=== PATIENT | female | born 1980 | race Two or more races ===

== ENCOUNTER 2023-05-27 13:08 | Inpatient (IN) | payer MEDICAID, OTHER ==
[~2023-05-27] VITALS: Ht 175.3 cm; Wt 56.0 kg
[2023-05-27] MEDS ORDERED: HYDROmorphone HCL 2 MG/ML VL/or syr IM ONE (14:30)
[2023-05-27] MEDS ORDERED: ONDANSETRON HCL 4 MG/2 ML VIAL IM ONE (14:30)
[2023-05-27 15:12] LABS: Basophils # (auto) 0.1 10 ^3/uL (0-0.2); Eosinophils # (auto) 0.2 10 ^3/uL (0-0.8); Eosinophils % (auto) 1.7 % (0.0-7.0); Monocytes # (auto) 0.9 10 ^3/uL (0-1.3)
[2023-05-27 15:14] LABS: Basophils % (auto) 1.1 % (0.0-2.0); Hematocrit 31.2 % (36.0-46.0); Hemoglobin 9.9 g/dL (12.2-16.2); Lymphocytes # (auto) 1.5 10 ^3/uL (0.4-5.4); Lymphocytes % (auto) 12.8 % (10.0-50.0); Mean Corpuscular Hgb Conc. 31.6 g/dL (32.0-36.0); Mean Corpuscular Volume 72.9 fL (80.0-100.0); Monocytes % (auto) 7.4 % (0.0-12.0); Neutrophils # (auto) 9.1 10 ^3/uL (1.6-8.6); Red Blood Cells 4.28 10^6/uL (4.0-5.20); Red Cell Distribution Width 18.5 % (11.8-14.3); White Blood Cell 11.8 10^3/uL (4.4-10.8)
[2023-05-27 15:29] LABS: Alanine Aminotransferase 10 U/L (7-40); Albumin 3.8 g/dL (3.2-4.8); Alkaline Phosphatase 202 U/L (46-116); Anion Gap 8 (5-15); Aspartate Aminotransferase 16 U/L (13-40); Bilirubin, Total 0.2 mg/dL (0.2-1.0); Blood Urea Nitrogen 8 mg/dL (9-23); Calcium 9.2 mg/dL (8.7-10.4); Carbon Dioxide 28 mmol/L (20-30); Chloride 100 mmol/L (98-107); Glucose 138 mg/dL (74-106); Lipase 32 U/L (12-53); Magnesium 1.9 mg/dL (1.6-2.6); Potassium 4.6 mmol/L (3.5-5.1); Sodium 136 mmol/L (136-145)
[2023-05-27 15:30] LABS: Total Protein 7.1 g/dL (5.7-8.2)
[2023-05-27 15:33] LABS: INR 1.07 (0.9-1.15); Partial Thromboplastin Time 32.7 SEC (24.5-34.5); Prothrombin Time 11.2 sec (9.3-11.8)
[2023-05-27 15:55] LABS: Anisocytosis Slight; Hypochromia Slight; Platelet Estimate Adequate
[2023-05-27 18:06] LABS: Urine Bacteria NONE SEEN /hpf (None Seen); Urine Blood 1+ /uL (Negative); Urine Clarity CLOUDY (Clear); Urine Color Yellow (Yellow); Urine Mucus FEW (None Seen); Urine Protein, UAD 1+ (Negative); Urine Urobilinogen Normal (Negative); Urine WBC 12 /hpf (0 - 5); Urine pH 6.5 (5.0-8.0)
[2023-05-27] MEDS: FOLIC ACID 1 MG, MULTIPLE VITAMIN 10 ML, MAGNESIUM SULF SDV 50% 8 MEQ, THIAMINE INJ 100... INJ SCH ×5 (21:01)
[2023-05-28] MEDS ORDERED: cefTRIAXone 1GM/50ML D5W 50 ML IV ONE (00:45)
[2023-05-28] MEDS ORDERED: MORPHINE SULFATE INJ 2 MG/ml SYRG IV PRN ×2 (02:00→02:45)
[2023-05-28] MEDS ORDERED: ACETAMINOPHEN 325 MG TAB PO PRN (02:00)
[2023-05-28] MEDS ORDERED: ONDANSETRON HCL 4 MG/2 ML VIAL IV PRN (02:00)
[2023-05-28] MEDS ORDERED: NITROGLYCERIN 0.4 MG SL TAB SL PRN (02:45)
[2023-05-28] MEDS: HYDROcodone-ACET 5/325MG TAB PO PRN ×2 (02:47→15:11)
[2023-05-28] MEDS: SODIUM CHLORIDE 0.9% 1,000 ML IV SCH ×2 (02:49→18:40)
[2023-05-28 07:24] LABS: Albumin 3.9 g/dL (3.2-4.8); Alkaline Phosphatase 174 U/L (46-116); Anion Gap 10 (5-15); Aspartate Aminotransferase 15 U/L (13-40); BUN/Creatinine Ratio 18.8 (10.0-20.0); Bilirubin, Total 0.2 mg/dL (0.2-1.0); Blood Urea Nitrogen 9 mg/dL (9-23); Calcium 9.5 mg/dL (8.7-10.4); Carbon Dioxide 25 mmol/L (20-30); Chloride 103 mmol/L (98-107); Glucose 105 mg/dL (74-106); Potassium 3.9 mmol/L (3.5-5.1); Sodium 138 mmol/L (136-145); Total Protein 7.4 g/dL (5.7-8.2)
[2023-05-28 07:25] LABS: Alanine Aminotransferase < 9 U/L (7-40)
[2023-05-28 07:40] LABS: Basophils # (auto) 0.1 10 ^3/uL (0-0.2); Eosinophils # (auto) 0.2 10 ^3/uL (0-0.8); Hemoglobin 9.4 g/dL (12.2-16.2); Monocytes # (auto) 0.8 10 ^3/uL (0-1.3); Nucleated Red Blood Cells % 0.1 %; Red Cell Distribution Width 18.4 % (11.8-14.3)
[2023-05-28 07:42] LABS: Hematocrit 30.8 % (36.0-46.0); Lymphocytes # (auto) 1.6 10 ^3/uL (0.4-5.4); Lymphocytes % (auto) 13.3 % (10.0-50.0); Mean Corpuscular Hemoglobin 22.6 pg (28.0-32.0); Mean Corpuscular Hgb Conc. 30.4 g/dL (32.0-36.0); Mean Corpuscular Volume 74.2 fL (80.0-100.0); Monocytes % (auto) 6.9 % (0.0-12.0); Neutrophils # (auto) 9.3 10 ^3/uL (1.6-8.6); Neutrophils % (auto) 76.8 % (37.0-80.0); Red Blood Cells 4.15 10^6/uL (4.0-5.20); White Blood Cell 12.1 10^3/uL (4.4-10.8)
[2023-05-28] MEDS ORDERED: cefTRIAXone 1GM/50ML D5W 50 ML IV SCH ×2 (09:00)
[2023-05-28 09:34] VITALS: PULSE 89; RESP 16; O2SAT 94
[2023-05-28] MEDS: GABAPENTIN 300 MG CAP PO SCH ×2 (10:54→21:07)
[2023-05-28] MEDS: ENOXAPARIN SOD 40 MG/0.4 ML SYRINGE SC SCH (10:55)
[2023-05-28 14:52] VITALS: PULSE 85; RESP 19; O2SAT 97
[2023-05-28] MEDS: FOLIC ACID 1 MG, MULTIPLE VITAMIN 10 ML, MAGNESIUM SULF SDV 50% 8 MEQ, THIAMINE INJ 100... INJ SCH ×5 (14:54)
[2023-05-28 16:00] VITALS: BP 109/68; PULSE 103; RESP 20; TEMP 97.6; O2SAT 94
[2023-05-28] MEDS: CYCLOBENZAPRINE HCL 10 MG TAB PO PRN (16:14)
[2023-05-28] MEDS ORDERED: CETI5SOL8 PO (17:08)
[2023-05-28] MEDS ORDERED: CYCL-839 PO (17:08)
[2023-05-28] MEDS ORDERED: GABA250S7 PO (17:08)
[2023-05-28] MEDS ORDERED: HYDR1TAB97 PO (17:08)
[2023-05-28] MEDS ORDERED: DULO1CAP5 PO (17:08)
[2023-05-28 20:00] VITALS: PULSE 130
[2023-05-28 22:00] VITALS: BP 92/63; PULSE 112; RESP 18; TEMP 97.9; O2SAT 96
[2023-05-28] MEDS: cefTRIAXone 1GM/50ML D5W 50 ML IV SCH (23:53)
[2023-05-29] VITALS (7 sets, daily range): BP systolic 92–101; BP diastolic 57–72; PULSE 100–130; RESP 15–21; TEMP 97.8–99; O2SAT 95–99
[2023-05-29] MEDS: DOCUSATE SOD 100 MG CAP PO PRN (06:08)
[2023-05-29] MEDS: HYDROcodone-ACET 5/325MG TAB PO PRN ×2 (06:08→19:52)
[2023-05-29 06:47] LABS: Basophils # (auto) 0.1 10 ^3/uL (0-0.2); Eosinophils # (auto) 0.3 10 ^3/uL (0-0.8); Hemoglobin 7.8 g/dL (12.2-16.2); Monocytes # (auto) 0.8 10 ^3/uL (0-1.3)
[2023-05-29 06:49] LABS: Basophils % (auto) 1.2 % (0.0-2.0); Eosinophils % (auto) 3.2 % (0.0-7.0); Hematocrit 24.4 % (36.0-46.0); Lymphocytes # (auto) 1.7 10 ^3/uL (0.4-5.4); Lymphocytes % (auto) 18.5 % (10.0-50.0); Mean Corpuscular Hemoglobin 23.4 pg (28.0-32.0); Mean Corpuscular Volume 73.1 fL (80.0-100.0); Monocytes % (auto) 8.5 % (0.0-12.0); Neutrophils # (auto) 6.3 10 ^3/uL (1.6-8.6); Neutrophils % (auto) 68.6 % (37.0-80.0); Red Blood Cells 3.34 10^6/uL (4.0-5.20); Red Cell Distribution Width 18.4 % (11.8-14.3); White Blood Cell 9.1 10^3/uL (4.4-10.8)
[2023-05-29 07:08] LABS: Albumin 2.9 g/dL (3.2-4.8); Alkaline Phosphatase 128 U/L (46-116); Anion Gap 6 (5-15); Aspartate Aminotransferase 8 U/L (13-40); BUN/Creatinine Ratio 16.7 (10.0-20.0); Blood Urea Nitrogen 8 mg/dL (9-23); Calcium 8.5 mg/dL (8.7-10.4); Carbon Dioxide 26 mmol/L (20-30); Chloride 106 mmol/L (98-107); Glucose 81 mg/dL (74-106); Potassium 3.8 mmol/L (3.5-5.1); Sodium 138 mmol/L (136-145)
[2023-05-29 07:09] LABS: Total Protein 5.6 g/dL (5.7-8.2)
[2023-05-29 07:14] LABS: Alanine Aminotransferase < 9 U/L (7-40)
[2023-05-29 07:23] LABS: Bilirubin, Total 0.2 mg/dL (0.2-1.0)
[2023-05-29] MEDS: GABAPENTIN 300 MG CAP PO SCH ×2 (09:34→21:01)
[2023-05-29] MEDS: CYCLOBENZAPRINE HCL 10 MG TAB PO PRN ×2 (09:34→21:03)
[2023-05-29] MEDS: ENOXAPARIN SOD 40 MG/0.4 ML SYRINGE SC SCH (09:34)
[2023-05-29] MEDS: SODIUM CHLORIDE 0.9% 1,000 ML IV SCH (11:20)
[2023-05-29] MEDS: FOLIC ACID 1 MG, MULTIPLE VITAMIN 10 ML, MAGNESIUM SULF SDV 50% 8 MEQ, THIAMINE INJ 100... INJ SCH ×5 (12:23)
[2023-05-30] VITALS (7 sets, daily range): BP systolic 91–108; BP diastolic 59–75; PULSE 84–120; RESP 18–20; TEMP 97.5–98.5; O2SAT 93–98
[2023-05-30] MEDS: cefTRIAXone 1GM/50ML D5W 50 ML IV SCH (00:55)
[2023-05-30] MEDS: SODIUM CHLORIDE 0.9% 1,000 ML IV SCH (04:00)
[2023-05-30] MEDS: HYDROcodone-ACET 5/325MG TAB PO PRN ×2 (06:08→19:22)
[2023-05-30] MEDS: ENOXAPARIN SOD 40 MG/0.4 ML SYRINGE SC SCH (09:11)
[2023-05-30] MEDS: CYCLOBENZAPRINE HCL 10 MG TAB PO PRN ×2 (09:11→21:34)
[2023-05-30] MEDS: GABAPENTIN 300 MG CAP PO SCH ×2 (09:11→21:34)
[2023-05-30] MEDS: DOCUSATE SOD 100 MG CAP PO PRN (09:15)
[2023-05-30] MEDS: FOLIC ACID 1 MG, MULTIPLE VITAMIN 10 ML, MAGNESIUM SULF SDV 50% 8 MEQ, THIAMINE INJ 100... INJ SCH ×5 (13:06)
[2023-05-31] VITALS (7 sets, daily range): BP systolic 96–132; BP diastolic 59–72; PULSE 63–137; RESP 16–20; TEMP 98.1–98.7; O2SAT 94–100
[2023-05-31] MEDS: cefTRIAXone 1GM/50ML D5W 50 ML IV SCH (00:03)
[2023-05-31] MEDS: SODIUM CHLORIDE 0.9% 1,000 ML IV SCH ×2 (00:06→13:20)
[2023-05-31 07:24] LABS: Chloride 104 mmol/L (98-107); Potassium 4.2 mmol/L (3.5-5.1); Sodium 134 mmol/L (136-145)
[2023-05-31 07:25] LABS: Anion Gap 7 (5-15); Carbon Dioxide 23 mmol/L (20-30)
[2023-05-31 07:26] LABS: Basophils # (auto) 0.1 10 ^3/uL (0-0.2); Calcium 8.8 mg/dL (8.5-10.1); Eosinophils # (auto) 0.4 10 ^3/uL (0-0.8); Hemoglobin 8.7 g/dL (12.2-16.2); Mean Corpuscular Volume 73.8 fL (80.0-100.0); Red Cell Distribution Width 18.6 % (11.8-14.3)
[2023-05-31 07:27] LABS: Basophils % (auto) 0.9 % (0.0-2.0); Eosinophils % (auto) 3.7 % (0.0-7.0); Hematocrit 27.8 % (36.0-46.0); Lymphocytes # (auto) 1.6 10 ^3/uL (0.4-5.4); Lymphocytes % (auto) 16.6 % (10.0-50.0); Mean Corpuscular Hemoglobin 23.2 pg (28.0-32.0); Mean Corpuscular Hgb Conc. 31.4 g/dL (32.0-36.0); Monocytes # (auto) 0.9 10 ^3/uL (0-1.3); Monocytes % (auto) 9.4 % (0.0-12.0); Neutrophils # (auto) 6.7 10 ^3/uL (1.6-8.6); Neutrophils % (auto) 69.4 % (37.0-80.0); Nucleated Red Blood Cells % 0.2 %; Red Blood Cells 3.77 10^6/uL (4.0-5.20); White Blood Cell 9.7 10^3/uL (4.4-10.8)
[2023-05-31 07:30] LABS: Glucose 98 mg/dL (74-106)
[2023-05-31 07:33] LABS: BUN/Creatinine Ratio 11.4 (10.0-20.0); Blood Urea Nitrogen < 5 mg/dL (9-23)
[2023-05-31 07:41] LABS: CRP High Sensitivity 9.38 mg/dL (<1.0)
[2023-05-31 08:07] LABS: Erythrocyte Sedimentation Rate 93 mm/hr (0-20)
[2023-05-31] MEDS: ENOXAPARIN SOD 40 MG/0.4 ML SYRINGE SC SCH (09:15)
[2023-05-31] MEDS: GABAPENTIN 300 MG CAP PO SCH ×2 (09:15→21:37)
[2023-05-31] MEDS: DOCUSATE SOD 100 MG CAP PO PRN (12:13)
[2023-05-31] MEDS: FOLIC ACID 1 MG, MULTIPLE VITAMIN 10 ML, MAGNESIUM SULF SDV 50% 8 MEQ, THIAMINE INJ 100... INJ SCH ×5 (12:24)
[2023-05-31] MEDS ORDERED: ALPRAZolam 0.25 MG TAB PO PRN (13:15)
[2023-05-31] MEDS: FERROUS SULFATE 325mg EC TAB PO SCH (14:46)
[2023-05-31] MEDS: HYDROcodone-ACET 5/325MG TAB PO PRN ×2 (14:51→18:20)
[2023-05-31] MEDS ORDERED: SODIUM CHLORIDE 0.9% 500 ML IV ONE (15:00)
[2023-05-31 15:33] LABS: % Iron Saturation 5.8 % (15-50)
[2023-05-31] MEDS: dilTIAZem HCL 60 MG TAB PO SCH (21:38)
[2023-06-01] VITALS (7 sets, daily range): BP systolic 94–110; BP diastolic 51–72; PULSE 94–124; RESP 17–19; TEMP 97.2–98.3; O2SAT 95–100
[2023-06-01] MEDS: cefTRIAXone 1GM/50ML D5W 50 ML IV SCH ×2 (01:57→23:44)
[2023-06-01] MEDS: dilTIAZem HCL 60 MG TAB PO SCH ×3 (05:35→21:29)
[2023-06-01] MEDS: HYDROcodone-ACET 5/325MG TAB PO PRN ×4 (05:36→23:43)
[2023-06-01] MEDS: SODIUM CHLORIDE 0.9% 1,000 ML IV SCH ×2 (08:18→23:44)
[2023-06-01] MEDS: GABAPENTIN 300 MG CAP PO SCH ×2 (09:14→21:29)
[2023-06-01] MEDS: FERROUS SULFATE 325mg EC TAB PO SCH (09:15)
[2023-06-01] MEDS: FOLIC ACID 1 MG, MULTIPLE VITAMIN 10 ML, MAGNESIUM SULF SDV 50% 8 MEQ, THIAMINE INJ 100... INJ SCH ×5 (12:28)
[2023-06-01] MEDS: NYSTATIN (MOUTH-THROAT) 500,000 UNITS/5 ML SUSP MT SCH ×2 (18:20→21:29)
[2023-06-02 05:00] VITALS: BP 98/64; PULSE 81; RESP 18; TEMP 98.5; O2SAT 96
[2023-06-02 05:40] LABS: Monocytes # (auto) 0.7 10 ^3/uL (0-1.3); Neutrophils # (auto) 5.6 10 ^3/uL (1.6-8.6)
[2023-06-02 05:42] LABS: Basophils # (auto) 0 10 ^3/uL (0-0.2); Basophils % (auto) 0.6 % (0.0-2.0); Eosinophils # (auto) 0.5 10 ^3/uL (0-0.8); Eosinophils % (auto) 5.6 % (0.0-7.0); Hematocrit 26.3 % (36.0-46.0); Hemoglobin 8.4 g/dL (12.2-16.2); Lymphocytes # (auto) 1.4 10 ^3/uL (0.4-5.4); Lymphocytes % (auto) 16.5 % (10.0-50.0); Mean Corpuscular Hemoglobin 23.3 pg (28.0-32.0); Mean Corpuscular Hgb Conc. 31.9 g/dL (32.0-36.0); Neutrophils % (auto) 68.3 % (37.0-80.0); Nucleated Red Blood Cells % 0.1 %; Red Cell Distribution Width 18.3 % (11.8-14.3); White Blood Cell 8.2 10^3/uL (4.4-10.8)
[2023-06-02 05:48] LABS: Chloride 106 mmol/L (98-107); Potassium 3.9 mmol/L (3.5-5.1); Sodium 136 mmol/L (136-145)
[2023-06-02 05:49] LABS: Anion Gap 6 (5-15); Calcium 8.6 mg/dL (8.5-10.1); Carbon Dioxide 24 mmol/L (20-30)
[2023-06-02 05:54] LABS: Blood Urea Nitrogen 8 mg/dL (9-23); Glucose 103 mg/dL (74-106)
[2023-06-02] MEDS: dilTIAZem HCL 60 MG TAB PO SCH (06:26)
[2023-06-02] MEDS: HYDROcodone-ACET 5/325MG TAB PO PRN ×3 (06:26→20:28)
[2023-06-02] MEDS: NYSTATIN (MOUTH-THROAT) 500,000 UNITS/5 ML SUSP MT SCH ×4 (06:26→21:24)
[2023-06-02 08:00] VITALS: BP 100/55; PULSE 116; PULSE 120; RESP 19; TEMP 98; O2SAT 96
[2023-06-02 08:15] VITALS: BP 100/55; PULSE 116; RESP 16; TEMP 98
[2023-06-02] MEDS: FERROUS SULFATE 325mg EC TAB PO SCH (09:30)
[2023-06-02] MEDS: GABAPENTIN 300 MG CAP PO SCH ×2 (09:30→21:24)
[2023-06-02] MEDS: dilTIAZem HCL 180MG ER CAP PO SCH (09:31)
[2023-06-02] MEDS: DOCUSATE SOD 100 MG CAP PO PRN ×2 (15:04→21:24)
[2023-06-02] MEDS: SODIUM CHLORIDE 0.9% 1,000 ML IV SCH (15:20)
[2023-06-02] MEDS: FOLIC ACID 1 MG, MULTIPLE VITAMIN 10 ML, MAGNESIUM SULF SDV 50% 8 MEQ, THIAMINE INJ 100... INJ SCH ×5 (15:54)
[2023-06-02 16:40] VITALS: BP 106/68; PULSE 108; RESP 20; TEMP 97.8; O2SAT 96
[2023-06-02 20:00] VITALS: PULSE 105; PULSE 106; RESP 18; O2SAT 96
[2023-06-02 21:55] VITALS: BP 101/71; PULSE 104; RESP 16; TEMP 98.2; O2SAT 99
[2023-06-03] MEDS: cefTRIAXone 1GM/50ML D5W 50 ML IV SCH ×2 (00:09→23:59)
[2023-06-03 05:00] VITALS: BP 99/70; PULSE 99; RESP 20; TEMP 98.2; O2SAT 95
[2023-06-03] MEDS: NYSTATIN (MOUTH-THROAT) 500,000 UNITS/5 ML SUSP MT SCH ×4 (05:31→21:32)
[2023-06-03 08:00] VITALS: BP 102/56; PULSE 105; PULSE 116; PULSE 51; RESP 16; RESP 20; TEMP 98.4; O2SAT 92
[2023-06-03] MEDS: HYDROcodone-ACET 5/325MG TAB PO PRN ×3 (09:22→22:07)
[2023-06-03] MEDS: SODIUM CHLORIDE 0.9% 1,000 ML IV SCH (09:23)
[2023-06-03] MEDS: FERROUS SULFATE 325mg EC TAB PO SCH (10:15)
[2023-06-03] MEDS: GABAPENTIN 300 MG CAP PO SCH ×2 (10:15→21:33)
[2023-06-03] MEDS: dilTIAZem HCL 180MG ER CAP PO SCH (10:16)
[2023-06-03 12:54] VITALS: BP 115/59; PULSE 100; RESP 20; TEMP 97.7; O2SAT 97
[2023-06-03] MEDS: FOLIC ACID 1 MG, MULTIPLE VITAMIN 10 ML, MAGNESIUM SULF SDV 50% 8 MEQ, THIAMINE INJ 100... INJ SCH ×5 (14:16)
[2023-06-03 17:00] VITALS: BP 97/67; PULSE 100; RESP 20; TEMP 97.5; O2SAT 95
[2023-06-03] MEDS: THROAT LOZENGES(CEPASTAT) MT PRN (17:30)
[2023-06-03 19:50] LABS: Magnesium 2.2 mg/dL (1.6-2.6)
[2023-06-03 20:00] VITALS: PULSE 102; RESP 18; O2SAT 95
[2023-06-03] MEDS: METOPROLOL TARTRATE 25 MG TAB PO SCH (21:42)
[2023-06-03 22:00] VITALS: BP 104/71; PULSE 98; RESP 16; TEMP 97.9; O2SAT 100
[2023-06-03] MEDS ORDERED: METOPROLOL TARTRATE 25 MG TAB PO SCH ×2 (22:00)
[2023-06-04] VITALS (8 sets, daily range): BP systolic 91–138; BP diastolic 57–81; PULSE 64–119; RESP 17–22; TEMP 98–98.6; O2SAT 94–100
[2023-06-04] MEDS: NYSTATIN (MOUTH-THROAT) 500,000 UNITS/5 ML SUSP MT SCH ×4 (05:07→21:46)
[2023-06-04] MEDS: HYDROcodone-ACET 5/325MG TAB PO PRN ×4 (08:00→23:45)
[2023-06-04] MEDS: GABAPENTIN 300 MG CAP PO SCH ×2 (09:54→21:46)
[2023-06-04] MEDS: FERROUS SULFATE 325mg EC TAB PO SCH (09:54)
[2023-06-04] MEDS: METOPROLOL TARTRATE 25 MG TAB PO SCH ×2 (09:55→21:48)
[2023-06-04 11:20] LABS: Basophils # (auto) 0.1 10 ^3/uL (0-0.2); Basophils % (auto) 0.6 % (0.0-2.0); Eosinophils # (auto) 0.6 10 ^3/uL (0-0.8); Eosinophils % (auto) 5.1 % (0.0-7.0); Hematocrit 29.2 % (36.0-46.0); Hemoglobin 8.9 g/dL (12.2-16.2); Lymphocytes # (auto) 1.6 10 ^3/uL (0.4-5.4); Lymphocytes % (auto) 13.1 % (10.0-50.0); Mean Corpuscular Hemoglobin 22.3 pg (28.0-32.0); Mean Corpuscular Hgb Conc. 30.4 g/dL (32.0-36.0); Mean Corpuscular Volume 73.5 fL (80.0-100.0); Monocytes % (auto) 8.5 % (0.0-12.0); Neutrophils # (auto) 8.8 10 ^3/uL (1.6-8.6); Neutrophils % (auto) 72.7 % (37.0-80.0); Red Blood Cells 3.97 10^6/uL (4.0-5.20); Red Cell Distribution Width 18.7 % (11.8-14.3); White Blood Cell 12.2 10^3/uL (4.4-10.8)
[2023-06-04 12:10] LABS: Chloride 107 mmol/L (98-107); Potassium 3.9 mmol/L (3.5-5.1); Sodium 135 mmol/L (136-145)
[2023-06-04 12:11] LABS: Anion Gap 6 (5-15); Calcium 8.9 mg/dL (8.5-10.1); Carbon Dioxide 22 mmol/L (20-30)
[2023-06-04 12:16] LABS: Glucose 100 mg/dL (74-106)
[2023-06-04 12:17] LABS: Blood Urea Nitrogen 6 mg/dL (9-23)
[2023-06-04] MEDS: FOLIC ACID 1 MG, MULTIPLE VITAMIN 10 ML, MAGNESIUM SULF SDV 50% 8 MEQ, THIAMINE INJ 100... INJ SCH ×5 (13:27)
[2023-06-04 13:33] LABS: Platelet Estimate Markedly Increased
[2023-06-04 13:35] LABS: Anisocytosis Slight; Hypochromia Moderate
[2023-06-04] MEDS: cefTRIAXone 1GM/50ML D5W 50 ML IV SCH (23:45)
[2023-06-05] VITALS (7 sets, daily range): BP systolic 92–107; BP diastolic 46–74; PULSE 102–120; RESP 18–19; TEMP 97.8–98.7; O2SAT 94–98
[2023-06-05] MEDS: THROAT LOZENGES(CEPASTAT) MT PRN (02:48)
[2023-06-05] MEDS: HYDROcodone-ACET 5/325MG TAB PO PRN ×3 (06:07→22:05)
[2023-06-05] MEDS: NYSTATIN (MOUTH-THROAT) 500,000 UNITS/5 ML SUSP MT SCH ×4 (06:07→21:59)
[2023-06-05 07:02] LABS: Eosinophils # (auto) 0.5 10 ^3/uL (0-0.8); Eosinophils % (auto) 6.4 % (0.0-7.0); Hemoglobin 7.9 g/dL (12.2-16.2); Lymphocytes # (auto) 1.3 10 ^3/uL (0.4-5.4); Red Cell Distribution Width 18.5 % (11.8-14.3); White Blood Cell 8.3 10^3/uL (4.4-10.8)
[2023-06-05 07:06] LABS: Basophils # (auto) 0.1 10 ^3/uL (0-0.2); Basophils % (auto) 0.7 % (0.0-2.0); Hematocrit 24.7 % (36.0-46.0); Lymphocytes % (auto) 15.5 % (10.0-50.0); Mean Corpuscular Hemoglobin 23.8 pg (28.0-32.0); Mean Corpuscular Hgb Conc. 31.9 g/dL (32.0-36.0); Mean Corpuscular Volume 74.4 fL (80.0-100.0); Monocytes # (auto) 0.7 10 ^3/uL (0-1.3); Monocytes % (auto) 8.9 % (0.0-12.0); Neutrophils # (auto) 5.7 10 ^3/uL (1.6-8.6); Neutrophils % (auto) 68.5 % (37.0-80.0); Red Blood Cells 3.32 10^6/uL (4.0-5.20)
[2023-06-05] MEDS: METOPROLOL TARTRATE 25 MG TAB PO SCH (09:14)
[2023-06-05] MEDS: FERROUS SULFATE 325mg EC TAB PO SCH (09:15)
[2023-06-05] MEDS: GABAPENTIN 300 MG CAP PO SCH ×2 (09:15→21:59)
[2023-06-05] MEDS ORDERED: AZITHROMYCIN 250 MG TAB PO SCH (10:00)
[2023-06-05] MEDS: FOLIC ACID 1 MG, MULTIPLE VITAMIN 10 ML, MAGNESIUM SULF SDV 50% 8 MEQ, THIAMINE INJ 100... INJ SCH ×5 (12:55)
[2023-06-05] MEDS ORDERED: METOPROLOL TARTRATE 25 MG TAB PO SCH (22:00)
[2023-06-06] MEDS: THROAT LOZENGES(CEPASTAT) MT PRN (00:10)
[2023-06-06 05:00] VITALS: BP 99/60; PULSE 124; RESP 19; TEMP 98.6; O2SAT 97
[2023-06-06] MEDS: NYSTATIN (MOUTH-THROAT) 500,000 UNITS/5 ML SUSP MT SCH ×2 (05:03→12:00)
[2023-06-06 07:29] LABS: Basophils # (auto) 0.1 10 ^3/uL (0-0.2); Basophils % (auto) 0.7 % (0.0-2.0); Eosinophils # (auto) 0.5 10 ^3/uL (0-0.8); Hematocrit 24.5 % (36.0-46.0); Hemoglobin 7.7 g/dL (12.2-16.2); Lymphocytes # (auto) 1.6 10 ^3/uL (0.4-5.4); Monocytes # (auto) 0.8 10 ^3/uL (0-1.3)
[2023-06-06 07:32] LABS: Eosinophils % (auto) 5.2 % (0.0-7.0); Lymphocytes % (auto) 15.1 % (10.0-50.0); Mean Corpuscular Hemoglobin 22.7 pg (28.0-32.0); Mean Corpuscular Hgb Conc. 31.4 g/dL (32.0-36.0); Mean Corpuscular Volume 72.4 fL (80.0-100.0); Monocytes % (auto) 7.8 % (0.0-12.0); Neutrophils # (auto) 7.4 10 ^3/uL (1.6-8.6); Neutrophils % (auto) 71.2 % (37.0-80.0); Red Blood Cells 3.39 10^6/uL (4.0-5.20); Red Cell Distribution Width 18.6 % (11.8-14.3); White Blood Cell 10.5 10^3/uL (4.4-10.8)
[2023-06-06 07:34] LABS: Anion Gap 6 (5-15); Calcium 8.6 mg/dL (8.5-10.1); Carbon Dioxide 26 mmol/L (20-30); Chloride 106 mmol/L (98-107); INR 1.04 (0.9-1.15); Prothrombin Time 10.9 sec (9.3-11.8); Sodium 138 mmol/L (136-145)
[2023-06-06 07:40] LABS: Glucose 91 mg/dL (74-106)
[2023-06-06 07:50] LABS: BUN/Creatinine Ratio 12.2 (10.0-20.0); Blood Urea Nitrogen < 5 mg/dL (9-23)
[2023-06-06 08:00] VITALS: PULSE 131; RESP 19; O2SAT 95
[2023-06-06 09:00] VITALS: BP 106/62; PULSE 131; RESP 19; TEMP 97.7; O2SAT 95
[2023-06-06] MEDS ORDERED: METOPROLOL TARTRATE 25 MG TAB PO SCH (10:00)
[2023-06-06] MEDS: GABAPENTIN 300 MG CAP PO SCH (10:04)
[2023-06-06] MEDS: FERROUS SULFATE 325mg EC TAB PO SCH (10:04)
[2023-06-06] MEDS: HYDROcodone-ACET 5/325MG TAB PO PRN ×2 (10:05→15:06)
[2023-06-06] MEDS ORDERED: METO25TA5 PO (10:10)
[2023-06-06] MEDS ORDERED: HYDR-4902 PO (10:10)
[2023-06-06] MEDS ORDERED: FERR-7 PO (10:21)
[2023-06-06] MEDS: FOLIC ACID 1 MG, MULTIPLE VITAMIN 10 ML, MAGNESIUM SULF SDV 50% 8 MEQ, THIAMINE INJ 100... INJ SCH ×5 (12:00)
[2023-06-06] MEDS ORDERED: MIDODRINE HCL 10 MG TAB PO SCH (12:00)
[2023-06-06 12:32] VITALS: BP 111/69; PULSE 109; RESP 21; TEMP 98.2; O2SAT 97
[2023-06-06 12:49] VITALS: BP 111/69; PULSE 109; RESP 21; TEMP 98.2; O2SAT 97
[2023-06-06 17:00] VITALS: BP 110/67; PULSE 103; RESP 20; TEMP 98.2; O2SAT 98
== END 2023-06-06 17:45 | disposition home or self-care (01) | DRG 710 ==
LOC: ER 13:08 → TELE 05-28 02:40 → TELE-WESTW 05-28 15:26 → WEST WING 06-05 15:48
PROVIDERS: ADMIT Nurse Practitioner Family; ATTEND Nurse Practitioner Acute Care
PROC: 07B63ZX Excision of Left Axillary Lymphatic, Percutaneous Approach, Diagnostic (ICD-10-PCS; principal; 2023-06-01)
DX: A41.9 Sepsis, unspecified organism (principal); E43 Unspecified severe protein-calorie malnutrition; I42.9 Cardiomyopathy, unspecified; L40.50 Arthropathic psoriasis, unspecified; R62.7 Adult failure to thrive; F17.200 Nicotine dependence, unspecified, uncomplicated; D50.9 Iron deficiency anemia, unspecified; D75.839 Thrombocytosis, unspecified; I50.22 Chronic systolic (congestive) heart failure; N20.2 Calculus of kidney with calculus of ureter; Z68.1 Body mass index [BMI] 19.9 or less, adult; G89.4 Chronic pain syndrome; N30.00 Acute cystitis without hematuria; N60.01 Solitary cyst of right breast; G43.909 Migraine, unspecified, not intractable, without status migrainosus; R59.0 Localized enlarged lymph nodes; M79.7 Fibromyalgia; R00.0 Tachycardia, unspecified; N60.02 Solitary cyst of left breast; R29.6 Repeated falls; Z80.0 Family history of malignant neoplasm of digestive organs; Z80.1 Family history of malignant neoplasm of trachea, bronchus and lung; Z80.3 Family history of malignant neoplasm of breast; Z80.49 Family history of malignant neoplasm of other genital organs; Z88.6 Allergy status to analgesic agent
CPT/HCPCS: 36415; 71046; 71250; 74176; 76642; 76881; 76942; 80048; 80053; 80061; 81001; 82533; 82728; 83540; 83550; 83605; 83615; 83690; 83735; 83880; 84132; 84443; 84484; 85025; 85610; 85652; 85730; 86141; 87040; 87086; 88184; 93005; 93306; 96372; 97110; 97116; 97163; 97530; G0378; J0696; J2405

== ENCOUNTER 2025-04-17 11:21 | Emergency (ER) | payer MEDICAID ==
[~2025-04-17] VITALS: Ht 167.6 cm; Wt 69.5 kg
[~2025-04-17 11:21] MED LIST: CETI5SOL52 PO; CYCL-839 PO; DULO1CAP5 PO; FERR-7 PO; GABA250S7 PO; HYDR-4902 PO; HYDR1TAB97 PO; METO25TA5 PO
--- NOTE | 2025-04-17 11:45 | ED.PDOC ---
History of Present Illness(SKN HPI Comments A 44 YEAR OLD FEMALE PRESENTS TO THE ED WITH COMPLAINT OF INSECT BITE OF LEFT CHEEK/FACE. PATIENT STATES SHE WOKE UP TODAY WITH AN INSECT BITE ON THE LEFT SIDE OF HER FACE/CHEEK. PATIENT REPORTS SHE IS NOW EXPERIENCING REDNESS AND MILD DRAINAGE TO THE AREA. PATIENT DENIES FEVER, CHILLS, SHORTNESS OF BREATH, CHEST PAIN, ABDOMINAL PAIN, NAUSEA, VOMITING, HEADACHE, OR OTHER COMPLAINTS. NO OTHER SYMPTOMS OR MODIFYING FACTORS AT THIS TIME. PATIENT IS ALERT, ORIENTED X 4, AND HAS STEADY GAIT. Chief Complaint: Insect Bite Time Seen by MD: 11:25 Primary Care Provider: UNKNOWN History of Present Illness: Nurses Notes, Medications, Allergies Allergies: Coded Allergies: Aspirin (Verified Allergy, Unknown, 05/27/23) Ibuprofen (Verified Allergy, Unknown, 05/27/23) Home Meds Active Scripts Acetaminophen (Tylenol 8 Hour Arthritis) 650 Mg Tab, 650 MG PO TID, #30 TAB Prov:SUSAN ANN 04/17/25 Cephalexin Monohydrate (Cephalexin) 500 Mg Cap, 1 CAP PO QID, #40 CAP Prov:SUSAN ANN 04/17/25 Ferrous Sulfate (Iron) 325 Mg Tab, 325 MG PO DAILY for 30 Days, #30 TAB Prov:LEILANI ALMEIDA NP 06/06/23 Metoprolol Tartrate (Metoprolol Tartrate) 25 Mg Tab, 0.5 TAB PO BID for 60 Days, #60 TAB 1 Refill Prov:LEILANI ALMEIDA NP 06/06/23 Hydrocodone-Acetaminophen (Hydrocodone Bitartrate/AC 5-325 mg) 1 Tab Tab, 1 TAB PO Q6HP PRN for 7 Days, #28 TAB Prov:LEILANI ALMEIDA NP 06/06/23 Reported Medications Hydrocodone-Acetaminophen (Hydrocodone/Acetaminophen 5-325 mg) 1 Tab Tab, 1 TAB PO, TAB 05/28/23 Cyclobenzaprine Hcl (Cyclobenzaprine Hcl) 10 Mg Tab, 10 MG PO, TAB 05/28/23 Gabapentin (GABAPENTIN) 250 Mg/5 Ml Ena, 250 MG PO, ML 05/28/23 Duloxetine HCl (Duloxetine HCl) 30 Mg Cap, 30 MG PO, CAP 05/28/23 Cetirizine Hcl (CETIRIZINE HCL ALLERGY CH) 5 Mg/5 Ml Ena, 5 MG PO, ML 05/28/23 Information Source: Patient Mode of Arrival: Ambulatory Severity: Moderate Timing: Hours Duration: Since onset, Hours Prehospital treatment: None Location: Face Mechanism: Insect Occurence: Indoors Object: None Condition of Object: None Retained Foreign Body: No Wound Type: Other (INSECT BITE) Immunization Status of Animal: NA Tetanus: Unknown History of: None Associated Signs and Symptoms: Redness, Pain Past Medical History PAST MEDICAL HISTORY: Arthritis Past Medical History (Other): CHRONIC NECK PAIN Surgical History: Denies all surgeries Surgical History (Other): NECK SURGERY DIRECTOR SOFTWARE QUALITY ASSURANCE History: No Pertinent DIRECTOR SOFTWARE QUALITY ASSURANCE History Family History Family History: Reviewed,noncontributory to illness, No family hx of Cancer, No family hx of DM, No family hx of Heart lashay, No family hx of HTN, No family hx ofKidney lashay, No family hx of Liver lashay, No family hx of Lung lashay, No family hx of Stroke Social History Smoker: Non-Smoker Alcohol: Denies ETOH Use Drugs: Denies Drug Use Lives In: Home Constitutional: denies: chills, diaphoresis, fatigue, fever, malaise, sweats, weakness, others EENTM: denies: blurred vision, double vision, ear bleeding, ear discharge, ear drainage, ear pain, ear ringing, eye pain, eye redness, hearing loss, mouth pain, mouth swelling, nasal discharge, nose bleeding, nose congestion, nose pain, photophobia, tearing, throat pain, throat swelling, voice changes, others Respiratory: denies: cough, hemoptysis, orthopnea, SOB at rest, shortness of breath, SOB with excertion, stridor, wheezing, others Cardiovascular: denies: chest pain, dizzy spells, diaphoresis, Dyspnea on exertion, edema, irregular heart beat, left arm pain, lightheadedness, palpitations, PND, syncope, others Gastrointestinal: denies: abdomen distended, abdominal pain, blood streaked bowels, constipated, diarrhea, dysphagia, difficulty swallowing, hematemesis, melena, nausea, poor appetite, poor fluid intake, rectal bleeding, rectal pain, vomiting, others Genitourinary: denies: abnormal vagina bleeding, burning, dyspareunia, dysuria, flank pain, frequency, hematuria, incontinence, pain, , vagina discharge, urgency, others Neurological: denies: dizziness, fainting, headache, left sided numbness, left sided weakness, numbness, paresthesia, pre-existing deficit, right sided numbness, right sided weakness, seizure, speech problems, tingling, tremors, weakness, others Musculoskeletal: denies: back pain, gout, joint pain, joint swelling, muscle pain, muscle stiffness, neck pain, others Integumetry: reports: lumps (LEFT FACE ), others (INSECT BITE OF LEFT FACE/CHEEK); denies: bruises, change in color, change in hair/nails, dryness, laceration, lesions, rash, wounds Allergic/Immunocompromised: denies: Difficulty Healing, Frequent Infections, Hives, Itching, others Hematologic/Lymphatic: denies: anemia, blood clots, easy bleeding, easy bruising, swollen glands, others Endocrine: denies: excessive hunger, excessive sweating, excessive thirst, excessive urination, flushing, intolerance to cold, intolerance to heat, unexplained weight gain, unexplained weight loss, others Psychiatric: denies: anxiety, bipolar disorder, depression, hopeless, panic disorder, schizophrenia, sleepless, suicidal, others All Other Systems: Reviewed and Negative Physical Exam General Appearance: No Apparent Distress, Normal HEENT: Normal ENT Inspection, PERRL/EOMI, Pharynx Normal, TMs Normal Neck: Full Range of Motion, Non-Tender, Normal, Normal Inspection Respiratory: Chest Non-Tender, Lungs Clear, No Accessory Muscle Use, No Respiratory Distress, Normal Breath Sounds Cardiovascular: No Edema, No JVD, No Murmur, No Gallop, Normal Peripheral Pulses, Regular Rate/Rhythm Breast Exam: Deferred Gastrointestinal: No Organomegaly, Non Tender, No Pulsatile Mass, Normal Bowel Sounds, Soft Genitalia: Deferred Pelvic: Deferred Rectal: Deferred Extremities: No calf tenderness, Normal capillary refill, Normal inspection, Normal range of motion, Non-tender, No pedal edema Musculoskeletal : Apperance: Normal Neurologic: Alert, diplomatic interpreter II-XII nml as Tested, No Motor Deficits, Normal Affect, Normal Mood, No Sensory Deficits Cerebellar Function: Normal Reflexes: Normal Skin: Dry, Normal Color, Warm, Wounds (A BUMP WITH LOCALIZED REDNESS AND TENDERNESS WITH MILD PUS DRAINAGE ON LEFT MIDDLE FACE, NO FACIAL SWELLING, +BITE MARM. ) Peripheral Pulses: 2+ carotid (R), 2+ carotid (L) Lymphatic: No Adenopathy Was a procedure done? Was a procedure done?: No Differential Diagnosis (INTG) Differential Diagnosis: Abrasion, Cellulitis, Contusion, Insect Envenomation, Puncture Wound Differential Diagnosis: Abscess, Contact Dermatitis, Impetigo, Intertrigo, Other (INSECT BITE WOUND OF LEFT FACE ) Differential Diagnosis: N/A Abscess: N/A Differential Diagnosis: N/A X-Ray, Labs, Meds, VS Vital Signs Date Time Temp Pulse Resp B/P (MAP) Pulse Ox O2 Delivery O2 Flow Rate FiO2 04/17/25 11:59 126 20 95 Room Air 04/17/25 11:59 97.5 126 20 113/77 (89) 95 97.5 04/17/25 11:24 97.5 126 20 113/77 95 97.5 Current Medications Medications (Trade) Dose Ordered Sig/Estuardo Route Start Time Stop Time Status Last Admin Ceftriaxone Sodium (Rocephin) 1,000 mg ONCE ONCE IM 04/17/25 11:45 04/17/25 11:46 DC 04/17/25 11:57 Acetaminophen (Tylenol Tablet Or Capsule) 1,000 mg ONCE ONCE PO 04/17/25 11:45 04/17/25 11:46 DC 04/17/25 11:53 X-Ray, Labs, Meds, VS Comment EXTERNAL MEDICAL RECORDS REVIEWED: [NONE] INDEPENDENT HISTORIANS: PATIENT'S CAREGIVER. SOCIAL DETERMINANTS OF HEALTH: [NONE] LABS ORDERED: NONE REVIEWED AND INTERPRETED RESULTS: NONE IMAGING ORDERED: NONE TREATMENTS ORDERED: PATIENT'S WOUND ON LEFT SIDE OF HER FACE/CHEEK WAS CLEANED WITH NORMAL SALINE. ROCEPHIN 1 G IM AND TYLENOL 1GM PO PROCEDURES PERFORMED: NONE CRITICAL CARE TIME: NONE I HAVE DISCUSSED THE PATIENT WITH THE ATTENDING PHYSICIAN DR. JENKINS AND HE AGREES WITH THE PATIENT'S PLAN OF CARE AND DISPOSITION. BASED ON HISTORY OF PRESENT ILLNESS, AND PHYSICAL EXAM, PATIENT WILL BE DISC HARGED HOME. DISCUSSED PLAN FOR DISCHARGE HOME WITH RX [KEFLEX AND TYLENOL ]. MEDICATION WARNINGS GIVEN. SHARED DECISION MAKING: PATIENT INSTRUCTED TO FOLLOW UP WITH PRIMARY CARE PROVIDER IN 1-2 DAYS FOR RE-EVALUATION OF SYMPTOMS. PATIENT VERBALIZES UNDE RSTANDING TO RETURN TO ED FOR NEW OR WORSENING SYMPTOMS OR IF FOLLOW UP WITH PCP CANNOT BE OBTAINED. PATIENT FEELS COMFORTABLE GOING HOME AT THIS TIME. ALL QUESTIONS ADDRESSED AT TIME OF DISCHARGE. Time of 1ST Reevaluation: 12:10 Reevaluation 1ST: Improved Patient Education/Counseling: Diagnosis, Treatment, Need For Follow Up Family Education/Counseling: Diagnosis, Treatment, Need For Follow Up Medical Screening: No EMC Exist At This Time SEPSIS Sepsis Screen Date sepsis recognized/suspect: Apr 17, 2025 Time Sepsis recognized/suspect: 1127 Recent Procedure: No On Antibiotic Therapy: No Respiratory Rate >20: No Heart Rate >90: Yes Temp<36 C (96.8 F) or >38.3 C: No SBP <90 or MAP <65 mmHG: No New Acute Mental Status Change: No Is the patient on CPAP, BIPAP,: No Physician Orders Acetaminophen Tab Or Cap (Tylenol Tablet (04/17/25 11:45) Vital Signs Date Time Temp Pulse Resp B/P (MAP) Pulse Ox O2 Delivery O2 Flow Rate FiO2 04/17/25 11:59 126 20 95 Room Air 04/17/25 11:59 97.5 126 20 113/77 (89) 95 97.5 04/17/25 11:24 97.5 126 20 113/77 95 97.5 Medications Medications Dose Ordered Sig/Estuardo Route Start Time Stop Time Status Last Admin Dose Admin Acetaminophen 1,000 mg ONCE ONCE PO 04/17/25 11:45 04/17/25 11:46 DC 04/17/25 11:53 Ceftriaxone Sodium 1,000 mg ONCE ONCE IM 04/17/25 11:45 04/17/25 11:46 DC 04/17/25 11:57 Departure 1 Departure Time of Disposition: 12:10 Impression: Primary Impression: Insect bite of face Qualified Codes: S00.86XA - Insect bite (nonvenomous) of other part of head, initial encounter; W57.XXXA - Bitten or stung by nonvenomous insect and other nonvenomous arthropods, initial encounter Disposition: 01 HOME / SELF CARE / HOMELESS Condition: Stable Additional Instructions: FOLLOW-UP WITH PCP IN 1 TO 2 DAYS. TAKE MEDICATIONS PRESCRIBED. RETURN TO ED FOR ANY NEW OR WORSENING SYMPTOMS. e-Prescriptions Acetaminophen (Tylenol 8 Hour Arthritis) 650 Mg Tab 650 MG PO TID, #30 TAB Prov: SUSAN ANN 04/17/25 Cephalexin Monohydrate (Cephalexin) 500 Mg Cap 1 CAP PO QID, #40 CAP Prov: SUSAN ANN 04/17/25 Discharged With: Self, Director Of Flight Operations Critical Care Note Critical Care Time?: No Stability Stability form required: No I personally scribed for SUSAN ANN ([email or web address]) on 04/17/25 at 11:45. Electronically submitted by Kayode Holley ([email or web address]). SUSAN ANN Apr 17, 2025 11:45
[2025-04-17] MEDS ORDERED: CEPH500C PO (11:49)
[2025-04-17] MEDS ORDERED: ACET-1080 PO (11:49)
[2025-04-17] MEDS: ACETAMINOPHEN 500 MG TAB or CAP PO ONE (11:53)
[2025-04-17] MEDS: cefTRIAXone SOD 1,000 MG VL IM ONE (11:57)
[2025-04-17] MEDS: LIDOCAINE 1% HCL (LOCAL ANESTH.) INJ 20ML MDV ONE (11:58)
[2025-04-17 11:59] VITALS: BP 113/77; PULSE 126; RESP 20; TEMP 97.5; O2SAT 95
== END 2025-04-17 12:06 | disposition home or self-care (01) ==
LOC: ER 11:21
DX: S00.86XA Insect bite (nonvenomous) of other part of head, initial encounter (principal); M19.90 Unspecified osteoarthritis, unspecified site; G89.29 Other chronic pain; Z98.890 Other specified postprocedural states; Z79.899 Other long term (current) drug therapy; Z88.6 Allergy status to analgesic agent; W57.XXXA Bitten or stung by nonvenomous insect and other nonvenomous arthropods, initial encounter; Y93.89 Activity, other specified; Y92.89 Other specified places as the place of occurrence of the external cause; Y99.8 Other external cause status
CPT/HCPCS: 96372; 99283; J0696; J2003

== ENCOUNTER 2025-05-02 10:29 | Emergency (ER) | payer MEDICAID ==
[~2025-05-02] VITALS: Ht 167.6 cm; Wt 67.6 kg
[~2025-05-02 10:29] MED LIST changes: +ACET-1080 PO; +CEPH500C PO
[2025-05-02 10:37] VITALS: BP 104/61; PULSE 127; RESP 17; TEMP 98.6; O2SAT 97
--- NOTE | 2025-05-02 12:42 | ED.PDOC ---
History of Present Illness(SKN HPI Comments A 44 YEAR OLD FEMALE PRESENTS TO THE ED FOR A WOUND RECHECK. PATIENT REPORTS BEING SEEN FOR AN INSECT BITE 2 WEEKS AGO, WAS SEEN AT THE ED AND RX ANTIBIOTICS IN WHICH SHE FINISHED. PATIENT MENTIONS SHE WENT TO HER PCP 2 DAYS AGO WHO STATED THE WOUND WAS HEALING. PATIENT STATES TODAY THE WOUND WAS DRAINING AND IS BACK FOR A REASSESSMENT. PATIENT DENIES FEVER, CHILLS, SHORTNESS OF BREATH, CHEST PAIN, ABDOMINAL PAIN, NAUSEA, VOMITING, HEADACHE, OR OTHER COMPLAINTS. NO OTHER SYMPTOMS OR MODIFYING FACTORS AT THIS TIME. PATIENT IS ALERT, ORIENTED X 4, AND HAS STEADY GAIT. Chief Complaint: Wound Check Time Seen by MD: 12:20 Primary Care Provider: UNKNOWN History of Present Illness: Nurses Notes, Medications, Allergies Allergies: Coded Allergies: Aspirin (Verified Allergy, Unknown, 05/27/23) Ibuprofen (Verified Allergy, Unknown, 05/27/23) Sulfa Antibiotics (Verified Allergy, Unknown, 05/02/25) Home Meds Active Scripts Clindamycin Hcl (Clindamycin Hcl) 300 Mg Cap, 1 CAP PO TID, #30 CAP Prov:SUSAN ANN 05/02/25 Acetaminophen (Tylenol 8 Hour Arthritis) 650 Mg Tab, 650 MG PO TID, #30 TAB Prov:SUSAN ANN 04/17/25 Cephalexin Monohydrate (Cephalexin) 500 Mg Cap, 1 CAP PO QID, #40 CAP Prov:SUSAN ANN 04/17/25 Ferrous Sulfate (Iron) 325 Mg Tab, 325 MG PO DAILY for 30 Days, #30 TAB Prov:LEILANI ALMEIDA NP 06/06/23 Metoprolol Tartrate (Metoprolol Tartrate) 25 Mg Tab, 0.5 TAB PO BID for 60 Days, #60 TAB 1 Refill Prov:LEILANI ALMEIDA NP 06/06/23 Hydrocodone-Acetaminophen (Hydrocodone Bitartrate/AC 5-325 mg) 1 Tab Tab, 1 TAB PO Q6HP PRN for 7 Days, #28 TAB Prov:LEILANI ALMEIDA NP 06/06/23 Reported Medications Hydrocodone-Acetaminophen (Hydrocodone/Acetaminophen 5-325 mg) 1 Tab Tab, 1 TAB PO, TAB 05/28/23 Cyclobenzaprine Hcl (Cyclobenzaprine Hcl) 10 Mg Tab, 10 MG PO, TAB 11/5/23 Gabapentin (GABAPENTIN) 250 Mg/5 Ml Ena, 250 MG PO, ML 05/28/23 Duloxetine HCl (Duloxetine HCl) 30 Mg Cap, 30 MG PO, CAP 05/28/23 Cetirizine Hcl (CETIRIZINE HCL ALLERGY CH) 5 Mg/5 Ml Ena, 5 MG PO, ML 05/28/23 Information Source: Patient Mode of Arrival: Ambulatory Severity: Mild Timing: Days Duration: Since onset, Days Location: Face Mechanism: Preceding Wound Object: None Condition of Object: None Retained Foreign Body: No Wound Type: Other (WOUND ON LEFT FACE. ) Immunization Status of Animal: Current Tetanus: UTD Associated Signs and Symptoms: Redness, Pain Past Medical History PAST MEDICAL HISTORY: Arthritis Surgical History: Denies all surgeries SAW SETTER History: No Pertinent SAW SETTER History Family History Family History: Reviewed,noncontributory to illness, No family hx of Cancer, No family hx of DM, No family hx of Heart lashay, No family hx of HTN, No family hx ofKidney lashay, No family hx of Liver lashay, No family hx of Lung lashay, No family hx of Stroke Social History Smoker: Non-Smoker Alcohol: Denies ETOH Use Drugs: Denies Drug Use Lives In: Home Constitutional: denies: chills, diaphoresis, fatigue, fever, malaise, sweats, weakness, others EENTM: denies: blurred vision, double vision, ear bleeding, ear discharge, ear drainage, ear pain, ear ringing, eye pain, eye redness, hearing loss, mouth pain, mouth swelling, nasal discharge, nose bleeding, nose congestion, nose pain, photophobia, tearing, throat pain, throat swelling, voice changes, others Respiratory: denies: cough, hemoptysis, orthopnea, SOB at rest, shortness of breath, SOB with excertion, stridor, wheezing, others Cardiovascular: denies: chest pain, dizzy spells, diaphoresis, Dyspnea on exertion, edema, irregular heart beat, left arm pain, lightheadedness, palpi tations, PND, syncope, others Gastrointestinal: denies: abdomen distended, abdominal pain, blood streaked bowels, constipated, diarrhea, dysphagia, difficulty swallowing, hematemesis, melena, nausea, poor appetite, poor fluid intake, rectal bleeding, rectal pain, vomiting, others Genitourinary: denies: abnormal vagina bleeding, burning, dyspareunia, dysuria, flank pain, frequency, hematuria, incontinence, pain, , vagina discharge, urgency, others Neurological: denies: dizziness, fainting, headache, left sided numbness, left sided weakness, numbness, paresthesia, pre-existing deficit, right sided numbness, right sided weakness, seizure, speech problems, tingling, tremors, weakness, others Musculoskeletal: denies: back pain, gout, joint pain, joint swelling, muscle pain, muscle stiffness, neck pain, others Integumetry: reports: wounds (LEFT FACE ), others (LEFT CHEEK ); denies: bruises, change in color, change in hair/nails, dryness, laceration, lesions, lumps, rash Allergic/Immunocompromised: denies: Difficulty Healing, Frequent Infections, Hives, Itching, others Hematologic/Lymphatic: denies: anemia, blood clots, easy bleeding, easy bruising, swollen glands, others Endocrine: denies: excessive hunger, excessive sweating, excessive thirst, excessive urination, flushing, intolerance to cold, intolerance to heat, unexplained weight gain, unexplained weight loss, others Psychiatric: denies: anxiety, bipolar disorder, depression, hopeless, panic disorder, schizophrenia, sleepless, suicidal, others All Other Systems: Reviewed and Negative Physical Exam General Appearance: No Apparent Distress, Normal HEENT: Normal ENT Inspection, PERRL/EOMI, Pharynx Normal, TMs Normal Neck: Full Range of Motion, Non-Tender, Normal, Normal Inspection Respiratory: Chest Non-Tender, Lungs Clear, No Accessory Muscle Use, No Respiratory Distress, Normal Breath Sounds Cardiovascular: No Edema, No JVD, No Murmur, No Gallop, Normal Peripheral Pulses, Regular Rate/Rhythm Breast Exam: Deferred Gastrointestinal: No Organomegaly, Non Tender, No Pulsatile Mass, Normal Bowel Sounds, Soft Genitalia: Deferred Pelvic: Deferred Rectal: Deferred Extremities: No calf tenderness, Normal capillary refill, Normal inspection, Normal range of motion, Non-tender, No pedal edema Musculoskeletal : Apperance: Normal Neurologic: Alert, shingler II-XII nml as Tested, No Motor Deficits, Normal Affect, Normal Mood, No Sensory Deficits Cerebellar Function: Normal Reflexes: Normal Skin: Dry, Normal Color, Warm, Wounds (A SMALL OPEN WOUND ON LEFT FACE WITH MILD REDNESS AND TENDERNESS, NO PUS DRAINAGE. ) Peripheral Pulses: 2+ carotid (R), 2+ carotid (L) Lymphatic: No Adenopathy Was a procedure done? Was a procedure done?: No Differential Diagnosis (INTG) Differential Diagnosis: Contusion, Puncture Wound, Other (WOUND RECHECK OF LEFT FACE) Differential Diagnosis: Impetigo, Intertrigo X-Ray, Labs, Meds, VS Vital Signs Date Time Temp Pulse Resp B/P (MAP) Pulse Ox O2 Delivery O2 Flow Rate FiO2 05/02/25 10:37 98.6 127 17 104/61 97 98.6 X-Ray, Labs, Meds, VS Comment EXTERNAL MEDICAL RECORDS REVIEWED: [NONE] INDEPENDENT HISTORIANS: [NONE] SOCIAL DETERMINANTS OF HEALTH: [NONE] LABS ORDERED: NONE REVIEWED AND INTERPRETED RESULTS: NONE IMAGING ORDERED: NONE TREATMENTS ORDERED: ROCEPHIN 1GM PROCEDURES PERFORMED: NONE CRITICAL CARE TIME: NONE I HAVE DISCUSSED THE PATIENT WITH THE ATTENDING PHYSICIAN, DR. CORRAL, SHE AGREES WITH THE PATIENT'S PLAN OF CARE AND DISPOSITION. BASED ON HISTORY OF PRESENT ILLNESS, AND PHYSICAL EXAM, PATIENT WILL BE DISCHARGED HOME. DISCUSSED PLAN FOR DISCHARGE HOME WITH RX [CLINDAMYCIN 300MG ]. MEDICATION WARNINGS GIVEN. SHARED DECISION MAKING: DISCUSSED WITH PATIENT THAT THEIR WORKUP WAS NORMAL. PATIENT INSTRUCTED TO FOLLOW UP WITH PRIMARY CARE PROVIDER IN 1-2 DAYS FOR RE- EVALUATION OF SYMPTOMS. PATIENT VERBALIZES UNDERSTANDING TO RETURN TO ED FOR NEW OR WORSENING SYMPTOMS OR IF FOLLOW UP WITH PCP CANNOT BE OBTAINED. PATIENT FEELS COMFORTABLE GOING HOME AT THIS TIME. ALL QUESTIONS ADDRESSED AT TIME OF DISCHARGE. Time of 1ST Reevaluation: 13:20 Reevaluation 1ST: Improved Patient Education/Counseling: Diagnosis, Treatment, Need For Follow Up Family Education/Counseling: Diagnosis, Treatment, Need For Follow Up Medical Screening: No EMC Exist At This Time Seen with PA/FIELD RETURN REPAIRER: Amended The PA Findings SEPSIS Sepsis Screen Date sepsis recognized/suspect: May 02, 2025 Time Sepsis recognized/suspect: 1040 Recent Procedure: No On Antibiotic Therapy: No Respiratory Rate >20: No Heart Rate >90: Yes Temp<36 C (96.8 F) or >38.3 C: No SBP <90 or MAP <65 mmHG: No New Acute Mental Status Change: No Is the patient on CPAP, BIPAP,: No Vital Signs Date Time Temp Pulse Resp B/P (MAP) Pulse Ox O2 Delivery O2 Flow Rate FiO2 05/02/25 10:37 98.6 127 17 104/61 97 98.6 Departure 1 Departure Time of Disposition: 12:56 Impression: Primary Impression: Encounter for wound re-check Disposition: HOME / SELF CARE / HOMELESS Condition: Stable Additional Instructions: FOLLOW-UP WITH PCP IN 1 TO 2 DAYS. TAKE MEDICATIONS PRESCRIBED. RETURN TO ED FOR ANY NEW OR WORSENING SYMPTOMS. e-Prescriptions Clindamycin Hcl (Clindamycin Hcl) 300 Mg Cap 1 CAP PO TID, #30 CAP Prov: SUSAN ANN 05/02/25 Discharged With: Self Critical Care Note Critical Care Time?: No Stability Stability form required: No I personally scribed for SUSAN ANN ([email or web address]) on 05/02/25 at 12:42. Electronically submitted by Sil Nickerson ([email or web address]). SUSAN ANN May 02, 2025 12:42
[2025-05-02] MEDS: cefTRIAXone SOD 1,000 MG VL IM ONE (12:45)
[2025-05-02] MEDS ORDERED: CLIN1CAP70 PO (12:51)
== END 2025-05-02 12:57 | disposition home or self-care (01) ==
LOC: ER 10:29
DX: Z48.00 Encounter for change or removal of nonsurgical wound dressing (principal); M19.90 Unspecified osteoarthritis, unspecified site; Z79.899 Other long term (current) drug therapy; Z88.6 Allergy status to analgesic agent; Z88.2 Allergy status to sulfonamides
CPT/HCPCS: 96372; 99283; J0696

== ENCOUNTER 2025-06-05 13:56 | Inpatient (IN) | payer MEDICAID ==
[~2025-06-05] VITALS: Ht 167.6 cm; Wt 70.2 kg
[~2025-06-05 13:56] MED LIST changes: +CLIN1CAP70 PO
--- NOTE | 2025-06-05 15:47 | ED.PDOC ---
History of Present Illness(SKN HPI Comments A 45 YEAR OLD FEMALE PRESENTS TO THE ED WITH COMPLAINT OF REDNESS AND SWELLING OF LEFT CHEEK. PATIENT STATES SHE HAS HAD A NON-HEALING LUMP ON THE LEFT SIDE OF HER FACE/CHEEK OFF AND ON FOR THE PAST 2 MONTHS. PATIENT REPORTS SHE HAS BEEN TO THIS ED 2 OTHER TIMES FOR THIS COMPLAINT WHERE SHE WAS PRESCRIBED ANTIBIOTICS, BUT NOTES THERE WAS ONLY SHORT-TERM IMPROVEMENT AND THEN IT CONTINUED TO GET WORSE AGAIN. PATIENT DENIES FEVER, CHILLS, SHORTNESS OF BREATH, CHEST PAIN, ABDOMINAL PAIN, NAUSEA, VOMITING, HEADACHE, OR OTHER COMPLAINTS. NO OTHER SYMPTOMS OR MODIFYING FACTORS AT THIS TIME. PATIENT IS ALERT, ORIENTED X 4, AND HAS STEADY GAIT. Chief Complaint: Wound Check Time Seen by MD: 14:41 Primary Care Provider: UNKNOWN History of Present Illness: Nurses Notes, Medications, Allergies Allergies: Coded Allergies: Aspirin (Verified Allergy, Unknown, 05/27/23) Ibuprofen (Verified Allergy, Unknown, 05/27/23) Sulfa Antibiotics (Verified Allergy, Unknown, 05/02/25) Home Meds Active Scripts Clindamycin Hcl (Clindamycin Hcl) 300 Mg Cap, 1 CAP PO TID, #30 CAP Prov:SUSAN ANN 05/02/25 Acetaminophen (Tylenol 8 Hour Arthritis) 650 Mg Tab, 650 MG PO TID, #30 TAB Prov:SUSAN ANN 04/17/25 Cephalexin Monohydrate (Cephalexin) 500 Mg Cap, 1 CAP PO QID, #40 CAP Prov:SUSAN ANN 04/17/25 Ferrous Sulfate (Iron) 325 Mg Tab, 325 MG PO DAILY for 30 Days, #30 TAB Prov:LEILANI ALMEIDA LAUNDRY SUPERINTENDENT 06/06/23 Metoprolol Tartrate (Metoprolol Tartrate) 25 Mg Tab, 0.5 TAB PO BID for 60 Days, #60 TAB 1 Refill Prov:LEILANI ALMEIDA NP 06/06/23 Hydrocodone-Acetaminophen (Hydrocodone Bitartrate/AC 5-325 mg) 1 Tab Tab, 1 TAB PO Q6HP PRN for 7 Days, #28 TAB Prov:LEILANI ALMEIDA NP 06/06/23 Reported Medications Hydrocodone-Acetaminophen (Hydrocodone/Acetaminophen 5-325 mg) 1 Tab Tab, 1 TAB PO, TAB 05/28/23 Cyclobenzaprine Hcl (Cyclobenzaprine Hcl) 10 Mg Tab, 10 MG PO, TAB 05/28/23 Gabapentin (GABAPENTIN) 250 Mg/5 Ml Ena, 250 MG PO, ML 05/28/23 Duloxetine HCl (Duloxetine HCl) 30 Mg Cap, 30 MG PO, CAP 05/28/23 Cetirizine Hcl (CETIRIZINE HCL ALLERGY CH) 5 Mg/5 Ml Ena, 5 MG PO, ML 05/28/23 Information Source: Patient Mode of Arrival: Ambulatory Severity: Moderate Timing: Months Duration: Since onset Prehospital treatment: None Location: Face Mechanism: Preceding Wound Developed: Facial Swelling Occurence: Indoors Object: None Condition of Object: None Retained Foreign Body: No Wound Type: None Immunization Status of Animal: NA Tetanus: Unknown History of: None Associated Signs and Symptoms: Redness, Swelling, Pain Past Medical History PAST MEDICAL HISTORY: Arthritis Surgical History: Denies all surgeries HUMAN RESOURCES OPERATIONS MANAGER History: No Pertinent HUMAN RESOURCES OPERATIONS MANAGER History Family History Family History: Reviewed,noncontributory to illness, No family hx of Cancer, No family hx of DM, No family hx of Heart lashay, No family hx of HTN, No family hx ofKidney lashay, No family hx of Liver lashay, No family hx of Lung lashay, No family hx of Stroke Social History Smoker: Non-Smoker Alcohol: Denies ETOH Use Drugs: Denies Drug Use Lives In: Home Constitutional: denies: chills, diaphoresis, fatigue, fever, malaise, sweats, weakness, others EENTM: denies: blurred vision, double vision, ear bleeding, ear discharge, ear drainage, ear pain, ear ringing, eye pain, eye redness, hearing loss, mouth pain, mouth swelling, nasal discharge, nose bleeding, nose congestion, nose pain, photophobia, tearing, throat pain, throat swelling, voice changes, others Respiratory: denies: cough, hemoptysis, orthopnea, SOB at rest, shortness of breath, SOB with excertion, stridor, wheezing, others Cardiovascular: denies: chest pain, dizzy spells, diaphoresis, Dyspnea on exertion, edema, irregular heart beat, left arm pain, lightheadedness, palpitations, PND, syncope, others Gastrointestinal: denies: abdomen distended, abdominal pain, blood streaked bowels, constipated, diarrhea, dysphagia, difficulty swallowing, hematemesis, melena, nausea, poor appetite, poor fluid intake, rectal bleeding, rectal pain, vomiting, others Genitourinary: denies: abnormal vagina bleeding, burning, dyspareunia, dysuria, flank pain, frequency, hematuria, incontinence, pain, , vagina discharge, urgency, others Neurological: denies: dizziness, fainting, headache, left sided numbness, left sided weakness, numbness, paresthesia, pre-existing deficit, right sided numbness, right sided weakness, seizure, speech problems, tingling, tremors, weakness, others Musculoskeletal: denies: back pain, gout, joint pain, joint swelling, muscle pain, muscle stiffness, neck pain, others Integumetry: reports: lumps (LUMP OF LEFT CHEEK/FACE); denies: bruises, change in color, change in hair/nails, dryness, laceration, lesions, rash, wounds, others Allergic/Immunocompromised: denies: Difficulty Healing, Frequent Infections, Hives, Itching, others Hematologic/Lymphatic: denies: anemia, blood clots, easy bleeding, easy bruising, swollen glands, others Endocrine: denies: excessive hunger, excessive sweating, excessive thirst, excessive urination, flushing, intolerance to cold, intolerance to heat, unexplained weight gain, unexplained weight loss, others Psychiatric: denies: anxiety, bipolar disorder, depression, hopeless, panic disorder, schizophrenia, sleepless, suicidal, others All Other Systems: Reviewed and Negative Physical Exam General Appearance: No Apparent Distress, Normal HEENT: Normal ENT Inspection, PERRL/EOMI, Pharynx Normal, TMs Normal, Other (ERYTHEMA AND MILD SWELLING ON LEFT FACE WITH A HARD BUMP. ) Neck: Full Range of Motion, Non-Tender, Normal, Normal Inspection Respiratory: Chest Non-Tender, Lungs Clear, No Accessory Muscle Use, No Respiratory Distress, Normal Breath Sounds Cardiovascular: No Edema, No JVD, No Murmur, No Gallop, Normal Peripheral Pulses, Regular Rate/Rhythm Breast Exam: Deferred Gastrointestinal: No Organomegaly, Non Tender, No Pulsatile Mass, Normal Bowel Sounds, Soft Genitalia: Deferred Pelvic: Deferred Rectal: Deferred Extremities: No calf tenderness, Normal capillary refill, Normal inspection, Normal range of motion, Non-tender, No pedal edema Musculoskeletal : Apperance: Normal Neurologic: Alert, wire cutter II-XII nml as Tested, No Motor Deficits, Normal Affect, Normal Mood, No Sensory Deficits Cerebellar Function: Normal Reflexes: Normal Skin: Dry, Normal Color, Warm, Other (A BUMP WITH LOCALIZED REDNESS, HARDNESS AND SWELLING ON LEFT FACE, CONSISTENT WITH FACIAL CELLULITIS. NO PUS DRAINAGE OR OPEN WOUND NOTED.) Peripheral Pulses: 2+ carotid (R), 2+ carotid (L) Lymphatic: No Adenopathy Was a procedure done? Was a procedure done?: No Images 1 - Differential Diagnosis (INTG) Differential Diagnosis: Abrasion, Cellulitis, Contusion, Insect Envenomation Differential Diagnosis: Atopic dermatitis, Cellulitis, Contact Dermatitis, Erysipelas Differential Diagnosis: N/A Abscess: N/A Differential Diagnosis: N/A X-Ray, Labs, Meds, VS Vital Signs Date Time Temp Pulse Resp B/P (MAP) Pulse Ox O2 Delivery O2 Flow Rate FiO2 06/05/25 16:54 103 18 98 Room Air 06/05/25 16:54 97.6 103 18 122/76 (91) 98 97.6 06/05/25 14:04 97.8 115 16 108/85 96 97.8 Lab Test 06/05/25 15:43 Range/Units White Blood Count 15.3 H 4.4-10.8 10^3/uL Red Blood Count 4.33 4.0-5.20 10^6/uL Hemoglobin 11.9 L 12.2-16.2 g/dL Hematocrit 37.4 36.0-46.0 % Mean Corpuscular Volume 86.3 80.0-100.0 fL Mean Corpuscular Hemoglobin 27.5 L 28.0-32.0 pg Mean Corpuscular Hemoglobin Concent 31.9 L 32.0-36.0 g/dL Red Cell Distribution Width 16.4 H 11.8-14.3 % Platelet Count 510 H 140-450 10^3/uL Mean Platelet Volume 8.6 6.9-10.8 fL Neutrophils (%) (Auto) 78.3 37.0-80.0 % Lymphocytes (%) (Auto) 12.0 10.0-50.0 % Monocytes (%) (Auto) 8.1 0.0-12.0 % Eosinophils (%) (Auto) 0.7 0.0-7.0 % Basophils (%) (Auto) 0.9 0.0-2.0 % Neutrophils # (Auto) 12.0 H 1.6-8.6 10 ^3/uL Lymphocytes # (Auto) 1.8 0.4-5.4 10 ^3/uL Monocytes # (Auto) 1.2 0-1.3 10 ^3/uL Eosinophils # (Auto) 0.1 0-0.8 10 ^3/uL Basophils # (Auto) 0.1 0-0.2 10 ^3/uL Nucleated Red Blood Cells 0.0 % Sodium Level 137 136-145 mmol/L Potassium Level 3.7 3.5-5.1 mmol/L Chloride Level 102 98-107 mmol/L Carbon Dioxide Level 26 20-31 mmol/L Anion Gap 9 5-15 Blood Urea Nitrogen 12 9-23 mg/dL Creatinine 0.57 0.550-1.02 mg/dL Glomerular Filtration Rate Calc 113 >90 mL/min BUN/Creatinine Ratio 21.1 H 10.0-20.0 Serum Glucose 91 74-106 mg/dL Lactic Acid Level 1.4 0.4-2.0 mmol/L Calcium Level 9.3 8.7-10.4 mg/dL X-Ray, Labs, Meds, VS Comment EXTERNAL MEDICAL RECORDS REVIEWED: [NONE] INDEPENDENT HISTORIANS: [NONE] SOCIAL DETERMINANTS OF HEALTH: [NONE] LABS ORDERED: CBC, BMP, LACTIC ACID W/REFLEX, BLOOD CULTURE REVIEWED AND INTERPRETED RESULTS: WBC 15.3 IMAGING ORDERED: NONE TREATMENTS ORDERED: ROCEPHIN 1 G IV, CLINDAMYCIN 600 MG IV, 0.9 NS 1 LITER IV BOLUS. PROCEDURES PERFORMED: NONE CRITICAL CARE TIME: NONE I HAVE DISCUSSED THE PATIENT WITH THE ATTENDING PHYSICIAN DR. PALUMBO AND HE AGREES WITH THE PATIENT'S PLAN OF CARE. UPON MY PHYSICAL EXAMINATION, THE PATIENT HAD REDNESS, SWELLING, AND HARDNESS TO HER LEFT CHEEK/FACE CONSISTENT WITH CELLULITIS. DUE TO THE FACT THAT THE PATIENT HAS FAILED OUTPATIENT TREATMENT MULTIPLE TIMES, BEEN TO THIS ED MULTIPLE TIMES FOR THIS ISSUE, AND HER CLINICAL EXAM FINDINGS REVEALING FINDINGS CONSISTENT WITH ACUTE FACIAL CELLULITIS, I HAVE DETERMINED THE PATIENT NEEDS TO BE ADMITTED FOR FURTHER TREATMENT AND EVALUATION. THE ON-CALL HOSPITALIST WILL BE CONTACTED FOR ADMISSION IN HIS PATIENT. Time of 1ST Reevaluation: 17:15 Reevaluation 1ST: Unchanged Patient Education/Counseling: Diagnosis, Treatment Family Education/Counseling: Diagnosis, Treatment SEPSIS Sepsis Screen Date sepsis recognized/suspect: Jun 05, 2025 Time Sepsis recognized/suspect: 1406 Recent Procedure: No On Antibiotic Therapy: No Respiratory Rate >20: No Heart Rate >90: Yes Temp<36 C (96.8 F) or >38.3 C: No SBP <90 or MAP <65 mmHG: No New Acute Mental Status Change: No Is the patient on CPAP, BIPAP,: No Physician Orders Blood Culture (06/05/25 15:40) Heplock Iv (06/05/25 ) Heplock Iv (06/05/25 ) Ceftriaxone 1gm/50ml (Rocephin) (06/05/25 16:45) Clindamycin 600mg Iv (Cleocin Iv) (06/05/25 16:45) NS (06/05/25 17:15) Vital Signs Date Time Temp Pulse Resp B/P (MAP) Pulse Ox O2 Delivery O2 Flow Rate FiO2 06/05/25 16:54 103 18 98 Room Air 06/05/25 16:54 97.6 103 18 122/76 (91) 98 97.6 06/05/25 14:04 97.8 115 16 108/85 96 97.8 Laboratory Tests Test 06/05/25 15:43 Lactic Acid Level 1.4 mmol/L (0.4-2.0) White Blood Count 15.3 10^3/uL (4.4-10.8) H Departure 1 Departure Time of Disposition: 17:15 Impression: Primary Impression: Facial cellulitis Additional Impression: Failure of outpatient treatment Disposition: 09 ADMITTED INPATIENT Condition: Serious Critical Care Note Critical Care Time?: No Stability Stability form required: Yes Unstable for transfer: Requires medication, ED Physician Assesment, Possible rapid decline I personally scribed for SUSAN ANN ([email or web address]) on 06/05/25 at 15:47. Electronically submitted by Kayode Holley ([email or web address]). I personally scribed for SUSAN ANN ([email or web address]) on 06/05/25 at 16:39. Electronically submitted by Kayode MCKEON). I personally scribed for SUSAN ANN ([email or web address]) on 06/05/25 at 16:40. Electronically submitted by Kayode Holley ([email or web address]). SUSAN ANN Jun 05, 2025 15:47
[2025-06-05 16:13] LABS: Hematocrit 37.4 % (36.0-46.0); Hemoglobin 11.9 g/dL (12.2-16.2); Mean Corpuscular Hemoglobin 27.5 pg (28.0-32.0); Mean Corpuscular Volume 86.3 fL (80.0-100.0); Nucleated Red Blood Cells % 0.0 %
[2025-06-05 16:23] LABS: Anion Gap 9 (5-15); Carbon Dioxide 26 mmol/L (20-31); Chloride 102 mmol/L (98-107); Potassium 3.7 mmol/L (3.5-5.1); Sodium 137 mmol/L (136-145)
[2025-06-05 16:24] LABS: Calcium 9.3 mg/dL (8.7-10.4)
[2025-06-05 16:29] LABS: BUN/Creatinine Ratio 21.1 (10.0-20.0); Blood Urea Nitrogen 12 mg/dL (9-23); Glucose 91 mg/dL (74-106)
[2025-06-05] MEDS: CLINDAMYCIN 600MG IV 50 ML IV ONE (16:45)
[2025-06-05] MEDS: SODIUM CHLORIDE 0.9% 1,000 ML IV ONE (17:34)
--- NOTE | 2025-06-05 20:53 | DVHHPRES ---
History of Present Illness Resident Creating Document: TYLER DARLING History of Present Illness Patient is a 45-year-old female with past medical history of multiple myeloma, psoriasis arthritis and fibromyalgia, presented to [facility] ED with complaint of redness and swelling of the left cheek. The patient reports having a non-healing lump on the left side of her face/cheek for the past 3 months. The pain was described as burning, rated 8/10 in intensity, associated with blurred vision. She states that she has visited this ED twice previously for the same complaint. At that time, the ED doctors said it looked like a spider bite, and she was prescribed antibiotics, which provided only short-term improvement before the symptoms worsened again. The patient denies fever, chills, shortness of breath, chest pain, abdominal pain, nausea, vomiting, headache, or other complaints. On evaluation in the ED, patient is afebrile, vitals are stable. Initial labs show normocytic anemia, other labs within normal limits. The patient was started on IV antibiotics and IV fluids. Patient is admitted for further evaluation and management. Past Medical History multiple myeloma, psoriasis arthritis, fibromyalgia Past Surgical History: None Family History: None Smoke: 1 pack per day ALCOHOL: none Drugs: None Lives: with Family Review of Systems Review of Systems Eyes: No Pain, No Vision change, No Conjunctivae inflammation, No Eyelid inflammation, No Other, No Redness ENT: No Ear pain, No Ear discharge, No Nose pain, No Nose discharge, No Nose congestion, No Mouth pain, No Mouth swelling, No Throat pain, No Throat swelling, No Other Cardiovascular: No Chest Pain, No Palpitations, No Orthopnea, No Paroxysmal No Dyspnea, No Edema, No Lt Headedness, No Other Respiratory: No Cough, No Dry, No Shortness of breath, No SOB with exertion, No Wheezing, No Hemoptysis, No Pleuritic Pain, No Sputum, No Other Gastrointestinal: No Nausea, No Vomiting, No Abdominal Pain, No Diarrhea, No Constipation, No Melena, No Hematochezia, No Other Genitourinary: No Dysuria, No Frequency, No Incontinence, No Hematuria, No Retention, No Other Musculoskeletal: No other, No neck pain, No shoulder pain, No arm pain, No back pain, No hand pain, No leg pain, No foot pain Skin: Rash, No Lesions, No Jaundice, No Bruising, No Other. Lump on left face/cheek with localized redness, hardness, and swelling Allergies: Coded Allergies: Aspirin (Verified Allergy, Unknown, 05/27/23) Ibuprofen (Verified Allergy, Unknown, 05/27/23) Sulfa Antibiotics (Verified Allergy, Unknown, 05/02/25) Exam Vital Signs Vital Signs Date Time Temp Pulse Resp B/P (MAP) Pulse Ox O2 Delivery O2 Flow Rate FiO2 06/05/25 16:54 103 18 98 Room Air 06/05/25 16:54 97.6 122/76 (91) 97.6 Exam General Appearance: Cooperative. Well developed. Well nourished. NAD HEENT: Erythema and mild swelling on the left face with a hard bump. Palpable lump noted on the left cheek, non-fluctuant, mildly tender to palpation. No drainage observed. No cervical lymphadenopathy. Pulmonary/Respiratory: Chest non-tender. Clear bilateral breath sounds, no crackles, no wheezing. Cardiovascular/Chest: Regular rate and rhythm. No murmurs. No JVD. Peripheral Pulses: 2+ Radial (R). 2+ Radial (L). 2+ Pedal (R). 2+ Pedal (L) Abdominal Exam: Normal bowel sounds. Soft. normal abdomen, no visible veins, Nontender. No hepatospenomegaly. No masses Ankle Exam: Negative ankle edema Lower extremities: Negative lower extremity edema Neuro/Mental Status: A&O x4. Coherent. Spine: Presence of three infusion sites over vertebral region Thoughts/Psych: Normal thought pattern. Appropriate mood and affect. Good judgement and insight Skin: Dry, normal color, warm. Bump with localized redness, hardness, and swelling on the left face. No pus drainage or open wound noted. Labs/Xrays Labs Test 06/05/25 15:43 Range/Units White Blood Count 15.3 H 4.4-10.8 10^3/uL Red Blood Count 4.33 4.0-5.20 10^6/uL Hemoglobin 11.9 L 12.2-16.2 g/dL Hematocrit 37.4 36.0-46.0 % Mean Corpuscular Volume 86.3 80.0-100.0 fL Mean Corpuscular Hemoglobin 27.5 L 28.0-32.0 pg Mean Corpuscular Hemoglobin Concent 31.9 L 32.0-36.0 g/dL Red Cell Distribution Width 16.4 H 11.8-14.3 % Platelet Count 510 H 140-450 10^3/uL Mean Platelet Volume 8.6 6.9-10.8 fL Neutrophils (%) (Auto) 78.3 37.0-80.0 % Lymphocytes (%) (Auto) 12.0 10.0-50.0 % Monocytes (%) (Auto) 8.1 0.0-12.0 % Eosinophils (%) (Auto) 0.7 0.0-7.0 % Basophils (%) (Auto) 0.9 0.0-2.0 % Neutrophils # (Auto) 12.0 H 1.6-8.6 10 ^3/uL Lymphocytes # (Auto) 1.8 0.4-5.4 10 ^3/uL Monocytes # (Auto) 1.2 0-1.3 10 ^3/uL Eosinophils # (Auto) 0.1 0-0.8 10 ^3/uL Basophils # (Auto) 0.1 0-0.2 10 ^3/uL Nucleated Red Blood Cells 0.0 % Sodium Level 137 136-145 mmol/L Potassium Level 3.7 3.5-5.1 mmol/L Chloride Level 102 98-107 mmol/L Carbon Dioxide Level 26 20-31 mmol/L Anion Gap 9 5-15 Blood Urea Nitrogen 12 9-23 mg/dL Creatinine 0.57 0.550-1.02 mg/dL Glomerular Filtration Rate Calc 113 >90 mL/min BUN/Creatinine Ratio 21.1 H 10.0-20.0 Serum Glucose 91 74-106 mg/dL Lactic Acid Level 1.4 0.4-2.0 mmol/L Calcium Level 9.3 8.7-10.4 mg/dL SEPSIS Sepsis Screen Date sepsis recognized/suspect: Jun 05, 2025 Time Sepsis recognized/suspect: 1702 Recent Procedure: No On Antibiotic Therapy: No Respiratory Rate >20: No Heart Rate >90: Yes Temp<36 C (96.8 F) or >38.3 C: No SBP <90 or MAP <65 mmHG: No New Acute Mental Status Change: No Is the patient on CPAP, BIPAP,: No Physician Orders Blood Culture (06/05/25 15:40) Heplock Iv (06/05/25 ) Heplock Iv (06/05/25 ) Vital Signs Date Time Temp Pulse Resp B/P (MAP) Pulse Ox O2 Delivery O2 Flow Rate FiO2 06/05/25 16:54 103 18 98 Room Air 06/05/25 16:54 97.6 103 18 122/76 (91) 98 97.6 06/05/25 14:04 97.8 115 16 108/85 96 97.8 Laboratory Tests Test 06/05/25 15:43 Lactic Acid Level 1.4 mmol/L (0.4-2.0) White Blood Count 15.3 10^3/uL (4.4-10.8) H Medications Medications Dose Ordered Sig/Estuardo Route Start Time Stop Time Status Last Admin Dose Admin Ceftriaxone Sodium 50 ml @ 100 mls/hr ONCE ONCE IV 06/05/25 16:45 06/05/25 17:14 DC 06/05/25 16:45 100 MLS/HR Clindamycin Phosphate 50 ml @ 50 mls/hr ONCE ONCE IV 06/05/25 16:45 06/05/25 17:44 DC 06/05/25 16:45 50 MLS/HR Sodium Chloride 1,000 ml @ 1,000 mls/hr Q1H ONCE IV 06/05/25 17:15 06/05/25 18:14 DC 06/05/25 17:34 1,000 MLS/HR Assessment/Plan Assessment/Plan Sepsis likely due to facial cellulitis Acute on chronic facial cellulitis Intractable facial pain due to above UA and UDS Blood culture Wound consult Wound culture Unasyn ampicillin/sulbactam 3 GM IV q6h Doxycycline 100 MG IV bid pain management with Tylenol and [place] IV NS IV 75 MLS/HR Hx of Multiple myeloma Chronic Normocytic hypochromic anemia likely due to multiple myeloma On chemotherapy once a week Fibromyalgia Cyclobenzaprine 10 MG PO daily Duloxetine 30 MG PO daily Diet: Regular Goals of care: Full code, discussed for >30 minutes on 06/05/25 Plan discussed with patient Plan discussed with Dr. Servin Plan discussed with: Patient Date of Service: Jun 05, 2025 Billing Provider: JUSTIN SERVIN MD Common Visit Codes: [id number] INP/OBS CARE (HIGH) Secondary Visit Codes: [id number] CARE PLAN 30 MINUTES TYLER DARLING RESIDENT Jun 05, 2025 20:53 MATHEW GARG RESIDENT Jun 06, 2025 04:49
[2025-06-05] MEDS: AMPICILLIN & SULBACTAM SODIUM 3 GM in SODIUM CHL 0.9% 100 ML IV SCH (21:00)
[2025-06-05] MEDS: SODIUM CHLOR 0.9% PF (SALINE LOCK) 10ML VIAL/SYR IV SCH (22:00)
[2025-06-05 22:07] LABS: Alanine Aminotransferase 27 U/L (7-40); Albumin 4.4 g/dL (3.2-4.8); Magnesium 1.8 mg/dL (1.6-2.6); Total Protein 7.6 g/dL (5.7-8.2)
[2025-06-05 22:09] LABS: Alkaline Phosphatase 142 U/L (46-116); Bilirubin, Direct < 0.1 mg/dL (<0.3); Bilirubin, Total 0.2 mg/dL (0.2-1.0)
--- NOTE | 2025-06-05 22:21 | DVH ---
CLINICAL HISTORY: chest pain TECHNIQUE: Single view of the chest was obtained. COMPARISON: XY CHEST TWO VIEWS ROUTINE on DOS: 06/04/23 FINDINGS: The heart size and pulmonary vasculature are normal. There is an unchanged right infrahilar opacity. IMPRESSION: Unchanged right infrahilar opacity, favor atelectasis.
[2025-06-05 23:45] LABS: COVID19 ANTIGEN SOFIA FIA NEGATIVE (NEGATIVE)
[2025-06-06] VITALS (11 sets, daily range): BP systolic 102–150; BP diastolic 67–96; PULSE 62–116; RESP 16–21; TEMP 97.9–98.3; O2SAT 95–99
[2025-06-06] MEDS: DOXYCYCLINE 100MG/100ML 100 ML IV SCH (02:31)
[2025-06-06] MEDS: SODIUM CHLORIDE 0.9% 1,000 ML IV ONE (02:31)
[2025-06-06 09:28] LABS: Urine Protein, UAD Negative (Negative)
[2025-06-06 09:39] LABS: Opiate Scree,Urine Pos (NEGATIVE)
[2025-06-06] MEDS: CYCLOBENZAPRINE HCL 10 MG TAB PO SCH (09:44)
[2025-06-06] MEDS: HYDROcodone-ACET 5/325MG TAB PO PRN (09:45)
[2025-06-06 09:52] LABS: Amphetamine Screen, Urine Neg (NEGATIVE); Barbiturate Scree,Urine Neg (NEGATIVE); Benzodiazephine Screen, Urine Neg (NEGATIVE); Cannabinoid Screen, Urine Neg (NEGATIVE); Cocaine Screen, Urine Neg (NEGATIVE); Phencyclidine Screen, Urine Neg (NEGATIVE)
[2025-06-06 12:55] LABS: Iron 14.0 ug/dL (50-170); Total Iron Binding Capacity 255.0 ug/dL (250-425)
[2025-06-06] MEDS: ONDANSETRON HCL 4 MG/2 ML VIAL IV ONE (13:37)
[2025-06-06] MEDS: PIPERACILLIN-TAZOB 3.375GM 100 ML IV SCH (19:00)
--- NOTE | 2025-06-06 20:14 | DVHPNRES ---
Progress Note Date Seen: Jun 06, 2025 Resident Creating Document: CAMDEN NG RESIDENT Has the PT tested + for MRSA If YES, has PT been informed?: No Medical Necessity Reason Pt with a Central, PICC or Fol: No Subjective Review of Systems Mrs. Cattoni. Holly Aragon is a 45-year-old female patient, with past medical history of multiple myeloma, psoriasis arthritis and fibromyalgia, The patient came to [facility] ED with complaint of redness and swelling of the left cheek. The patient reports having a non-healing lump on the left side of her face/cheek for the past 3 months. The pain was described as burning, rated 8/10 in intensity, associated with blurred vision. She states that she has visited this ED twice previously for the same complaint. At that time, the ED doctors said it looked like a spider bite, and she was prescribed antibiotics, which provided only short-term improvement before the symptoms worsened again. The patient denies fever, chills, shortness of breath, chest pain, abdominal pain, nausea, vomiting, headache, or other complaints. On evaluation in the ED, patient is afebrile, vitals are stable. Initial labs show normocytic anemia, other labs within normal limits. The patient was started on IV antibiotics and IV fluids. Patient is admitted for further evaluation and management. Past Medical History:multiple myeloma, psoriasis arthritis, fibromyalgia Past Surgical History: None Family History: None Social history: Smoke: 1 pack per day Alcohol: none Drugs: None Lives: with [facility] course: The patient was evaluated and examined at the bedside. VS, Labs and chart was reviewed. The patient complaints of facial pain 8/10. Blood and wound cultures were ordered. The patient is receiving IV antibiotics, Unyasin was stopped and Sozyn was started today. Wound consult was placed. Surgical consult was placed, the recommend transfer to high level of care. The patient will be transferring to [place] for plastic surgery evaluation and management. Review of Systems Eyes: No Pain, No Vision change, No Conjunctivae inflammation, No Eyelid inflammation, No Other, No Redness ENT: No Ear pain, No Ear discharge, No Nose pain, No Nose discharge, No Nose congestion, No Mouth pain, No Mouth swelling, No Throat pain, No Throat swelling, No Other Cardiovascular: No Chest Pain, No Palpitations, No Orthopnea, No Paroxysmal No Dyspnea, No Edema, No Lt Headedness, No Other Respiratory: No Cough, No Dry, No Shortness of breath, No SOB with exertion, No Wheezing, No Hemoptysis, No Pleuritic Pain, No Sputum, No Other Gastrointestinal: No Nausea, No Vomiting, No Abdominal Pain, No Diarrhea, No Constipation, No Melena, No Hematochezia, No Other Genitourinary: No Dysuria, No Frequency, No Incontinence, No Hematuria, No Retention, No Other Musculoskeletal: No other, No neck pain, No shoulder pain, No arm pain, No back pain, No hand pain, No leg pain, No foot pain Skin: Rash, No Lesions, No Jaundice, No Bruising, No Other. Lump on left face/cheek with localized redness, hardness, and swelling Allergies: Aspirin (Verified Allergy, Unknown, 05/27/23) Ibuprofen (Verified Allergy, Unknown, 05/27/23) Sulfa Antibiotics (Verified Allergy, Unknown, 05/02/25) Objective vital signs Vital Sign Date Time Temp Pulse Resp B/P (MAP) Pulse Ox O2 Delivery O2 Flow Rate FiO2 06/06/25 17:00 98.0 99 16 114/78 (90) 96 98.0 06/06/25 08:00 Room Air* 0 21 Total Intake and Output 06/05/25 06/05/25 06/06/25 15:00 23:00 07:00 Intake Total 0 ml Balance 0 ml medications Current Medications Medications Dose Ordered Sig/Estuardo Route Start Time Stop Time Status Last Admin Dose Admin Sodium Chloride 10 ml Q8HR IV 06/05/25 22:00 06/06/25 14:28 10 ML Acetaminophen/ Hydrocodone Bitart 1 tab Q4HP PRN PO 06/05/25 21:00 06/06/25 09:45 1 TAB Acetaminophen 650 mg Q6HP PRN PO 06/05/25 21:00 Doxycycline Hyclate 100 ml @ 50 mls/hr BID IV 06/05/25 22:00 06/06/25 11:30 50 MLS/HR Cyclobenzaprine HCl 10 mg DAILY PO 06/06/25 10:00 06/06/25 09:44 10 MG Duloxetine HCl 30 mg DAILY PO 06/06/25 10:00 06/06/25 11:30 30 MG Piperacillin Sod/ Tazobactam Sod 100 ml @ 25 mls/hr Q8H IV 06/06/25 18:00 06/06/25 19:00 25 MLS/HR Examination General Appearance: Cooperative. Well developed. Well nourished. NAD HEENT: Erythema and mild swelling on the left face with a hard bump. Palpable lump noted on the left cheek, non-fluctuant, mildly tender to palpation. No drainage observed. No cervical lymphadenopathy. Pulmonary/Respiratory: Chest non-tender. Clear bilateral breath sounds, no crackles, no wheezing. Cardiovascular/Chest: Regular rate and rhythm. No murmurs. No JVD. Peripheral Pulses: 2+ Radial (R). 2+ Radial (L). 2+ Pedal (R). 2+ Pedal (L) Abdominal Exam: Normal bowel sounds. Soft. normal abdomen, no visible veins, Nontender. No hepatospenomegaly. No masses Ankle Exam: Negative ankle edema Lower extremities: Negative lower extremity edema Neuro/Mental Status: A&O x4. Coherent. Spine: Presence of three infusion sites over vertebral region Thoughts/Psych: Normal thought pattern. Appropriate mood and affect. Good judgement and insight Skin: Dry, normal color, warm. Bump with localized redness, hardness, and swelling on the left face. No pus drainage or open wound noted. laboratory and microbiology Laboratory Tests 06/05/25 15:43 Test 06/05/25 15:43 Range/Units Serum Glucose 91 74-106 mg/dL Microbiology Date/Time Source Procedure Growth Status 06/06/25 07:54 Face Gram Stain - Final Resulted 06/06/25 07:54 Face Wound Culture Pending Resulted 06/05/25 15:53 Blood Blood Culture - Preliminary NO GROWTH AFTER 24 HOURS OF INCUBATION. Resulted Problem List/Assessment/Plan Problem List/Assessment/Plan #Sepsis likely due to acute facial cellulitis #Acute facial cellulitis #Intractable facial pain due to acute cellulitis UA and UDS Blood culture Wound consult Wound culture Unasyn ampicillin/sulbactam 3 GM IV q6h Doxycycline 100 MG IV bid pain management with Tylenol and [place] IV NS IV 75 MLS/HR #Chronic Multiple myeloma #Chronic Normocytic hypochromic anemia likely due to multiple myeloma On chemotherapy once a week at [facility] with Dr. Jolley (Oncology) #Chronic Fibromyalgia Cyclobenzaprine 10 MG PO daily Duloxetine 30 MG PO daily #Choric Psoriasis Skyrizi (Home medication) Diet: Regular Goals of care: Full code, discussed for >35 minutes Code: Full code PCP: Noa sevilla, patient does not remember the name. Plan discussed with Dr. Servin Plan discussed with: Patient My Orders My Orders Orders - CAMDEN NG RESIDENT Procedure Category Date Status Time * Surgical Consult CONS 06/06/25 Transmitted Stool Occult Blood LAB 06/06/25 Logged 10:20 * Dietary Consult CONS 06/06/25 Transmitted 15:45 Complete Blood Count LAB 06/07/25 Verified 04:00 Basic Metabolic Panel LAB 06/07/25 Verified 04:00 Date of Service: Jun 06, 2025 Billing Provider: JUSTIN SERVIN MD Common Visit Codes: [id number] INP/OBS CARE(HIGH) CAMDEN NG RESIDENT Jun 06, 2025 20:14
[2025-06-07] VITALS (8 sets, daily range): BP systolic 101–122; BP diastolic 68–93; PULSE 102–108; RESP 15–20; TEMP 97.6–98.2; O2SAT 95–98
[2025-06-07 06:18] LABS: Hematocrit 32.4 % (36.0-46.0); Hemoglobin 10.6 g/dL (12.2-16.2); Mean Corpuscular Hemoglobin 27.9 pg (28.0-32.0); Mean Corpuscular Volume 85.2 fL (80.0-100.0); Nucleated Red Blood Cells % 0.0 %
[2025-06-07 06:30] LABS: Anion Gap 9 (5-15); Carbon Dioxide 26 mmol/L (20-31); Chloride 107 mmol/L (98-107); Sodium 142 mmol/L (136-145)
[2025-06-07 06:32] LABS: Calcium 9.0 mg/dL (8.7-10.4)
[2025-06-07 06:36] LABS: Glucose 88 mg/dL (74-106)
[2025-06-07 06:37] LABS: BUN/Creatinine Ratio 13.0 (10.0-20.0); Potassium 3.5 mmol/L (3.5-5.1)
[2025-06-07 06:39] LABS: Blood Urea Nitrogen 6 mg/dL (9-23)
[2025-06-07] MEDS: IOHEXOL 300 MG/ML 100ML BOTTLE IJ ONE (13:28)
--- NOTE | 2025-06-07 15:10 | DVHPNRES ---
Progress Note Date Seen: Jun 07, 2025 Resident Creating Document: MANNY DENNIS RESIDENT Has the PT tested + for MRSA If YES, has PT been informed?: No Medical Necessity Reason Pt with a Central, PICC or Fol: No Subjective Review of Systems Mrs. Cattoni. Holly Aragon is a 45-year-old female patient, with past medical history of multiple myeloma, psoriasis arthritis and fibromyalgia presented to the ED with complaint of redness and swelling of the left cheek. The patient reports having a non-healing lump on the left side of her face/cheek for the past 3 months. The pain was described as burning, rated 8/10 in intensity, associated with blurred vision. She states that she has visited this ED twice previously for the same complaint. The patient denies fever, chills, shortness of breath, chest pain, abdominal pain, nausea, vomiting, headache, or other complaints. The patient was seen and examined on the bedside. She is alert oriented x3. Mentioned last night the bump popped up and pus coming out from this, complaining of pain and redness around the lump in the left cheek. Consulted cable worker helper yesterday for higher level of care transfer for facial/plastic surgery for facial cellulitis. Objective vital signs Vital Sign Date Time Temp Pulse Resp B/P (MAP) Pulse Ox O2 Delivery O2 Flow Rate FiO2 06/07/25 13:00 97.6 107 18 101/68 (79) 98 97.6 06/07/25 07:45 Room Air* 0 21 Total Intake and Output 06/06/25 06/06/25 06/07/25 15:00 23:00 07:00 Intake Total 50 ml 900 ml Balance 50 ml 900 ml medications Current Medications Medications Dose Ordered Sig/Estuardo Route Start Time Stop Time Status Last Admin Dose Admin Sodium Chloride 10 ml Q8HR IV 06/05/25 22:00 06/07/25 06:49 10 ML Acetaminophen/ Hydrocodone Bitart 1 tab Q4HP PRN PO 06/05/25 21:00 06/07/25 09:46 1 TAB Acetaminophen 650 mg Q6HP PRN PO 06/05/25 21:00 Doxycycline Hyclate 100 ml @ 50 mls/hr BID IV 06/05/25 22:00 06/07/25 09:40 50 MLS/HR Cyclobenzaprine HCl 10 mg DAILY PO 06/06/25 10:00 06/07/25 09:41 10 MG Duloxetine HCl 30 mg DAILY PO 06/06/25 10:00 06/06/25 11:30 30 MG Piperacillin Sod/ Tazobactam Sod 100 ml @ 25 mls/hr Q8H IV 06/06/25 18:00 06/07/25 09:40 25 MLS/HR Examination Physical Examination: General Appearance: Cooperative. Well developed. Well nourished. NAD HEENT: Erythema and mild swelling on the left face with a hard bump. Palpable lump noted on the left cheek, non-fluctuant, mildly tender to palpation. drainage from the lump observed. No cervical lymphadenopathy. Pulmonary/Respiratory: Chest non-tender. Clear bilateral breath sounds, no crackles, no wheezing. Cardiovascular/Chest: Regular rate and rhythm. No murmurs. No JVD. Peripheral Pulses: 2+ Radial (R). 2+ Radial (L). 2+ Pedal (R). 2+ Pedal (L) Abdominal Exam: Normal bowel sounds. Soft. normal abdomen, no visible veins, Nontender. No hepatosplenomegaly. No masses Ankle Exam: Negative ankle edema Lower extremities: Negative lower extremity edema Neuro/Mental Status: A&O x4. Coherent. Spine: Presence of three infusion sites over vertebral region Thoughts/Psych: Normal thought pattern. Appropriate mood and affect. Good judgement and insight Skin: Dry, normal color, warm. Bump with localized redness, hardness, and swelling on the left face. laboratory and microbiology Laboratory Tests 06/07/25 05:32 Test 06/07/25 05:32 Range/Units Serum Glucose 88 74-106 mg/dL Microbiology Date/Time Source Procedure Growth Status 06/06/25 09:03 Voided Urine Urine Culture - Preliminary Resulted 06/06/25 07:54 Face Gram Stain - Final Resulted 06/06/25 07:54 Face Wound Culture - Preliminary No growth Resulted 06/05/25 15:53 Blood Blood Culture - Preliminary NO GROWTH AFTER 24 HOURS OF INCUBATION. Resulted Labs and/or images reviewed: Labs reviewed by me, Image(s) reviewed by me Problem List/Assessment/Plan Problem List/Assessment/Plan Assessment and plan: # Sepsis due to acute facial cellulitis # Acute facial cellulitis # Intractable facial pain due to above Blood Culture, Gram stain of the wound and wound culture preliminary were negative for any growth IV Zosyn 3.375 g Q 8 HR IV Doxycycline 100 MG IV bid pain management with Tylenol and [place] pending maxillofacial CT with IV contrast consulted aids social worker for transfer the patient to higher level of care for facial/ plastic surgery for facial cellulitis #Chronic Multiple myeloma #Chronic Normocytic hypochromic anemia likely due to multiple myeloma On chemotherapy once a week at [facility] with Dr. Jolley (Oncology) #Chronic Fibromyalgia Cyclobenzaprine 10 MG PO daily Duloxetine 30 MG PO daily #Choric Psoriasis Skyrizi (Home medication) # DVT prophylaxis Lovenox 40 mg SC daily Goal of care discussed with the patient for 20 minutes; full code Plan discussed with Dr. Eller Plan discussed with: Patient, Other (RN) My Orders My Orders Orders - MANNY DENNIS Procedure Category Date Status Time Maxillofacial With CT 06/07/25 Taken 11:12 Dietary Evaluation Review Comments: Nutrition Recommendation: 1) Consider Ferrous sulfate 325mg daily 2) Monitor PO intake, lab values, weight trend, and I/O Expected Outcomes/Goals: Wound to improve Lab values to improve fu 5-7 days Date of Service: Jun 07, 2025 Billing Provider: BEATRIZ ELLER MD Common Visit Codes: [id number] INP/OBS CARE(HIGH) Secondary Visit Codes: [id number] CARE PLAN 30 MINUTES (20 minutes) MANNY DENNIS Jun 07, 2025 15:10 BEATRIZ ELLER MD Jun 10, 2025 07:44
--- NOTE | 2025-06-07 15:58 | DVH ---
CT MAXILLOFACIAL WITH Indication: Facial cellulitis EXAM DATE: 06/07/2025 02:09 PM COMPARISON: None TECHNIQUE: CT of the maxillofacial bones with contrast. RADIATION DOSE: CTDIvol: 66.25 mGy, DLP: 1465.29 mGy*cm FINDINGS: The orbits and retrobulbar spaces unremarkable. Facial region soft tissue stranding heterogeneous lesion/collection extending to the skin surface in the 2.7 x 1.1 x 2.5 cm with surrounding stranding. The mastoids demonstrating small right mastoid effusion. Complete opacification left maxillary sinus. There is some enhancement within the left maxillary sinus contents. The patient's maxilla is edentulous but there is a periapical lucency extending into the left maxillary sinus, coronal image 29 of 102. Extensive dental disease. IMPRESSION: Complex collection in the left facial region measuring 2.7 x 2.1 x 2.5 cm, likely representing abscess/ phlegmon and communicates with the skin surface. Complete opacification of the left maxillary sinus with some enhancement which may represent the etiology for the left facial cellulitis. Correlate clinically. No definitive osseous erosion seen. If there is concern for osteomyelitis MRI of the facial region with and without contrast can be obtained. The patient's maxilla is edentulous but there is a periapical lucency extending into the left maxillary sinus, coronal image 29 of 102, which could represent synchronous odontogenic component. Small right mastoid effusion.
[2025-06-07] MEDS: ENOXAPARIN SOD 40 MG/0.4 ML SYRINGE SC ONE (18:01)
[2025-06-07] MEDS: METOCLOPRAMIDE HCL 5MG/ml INJ 2ml VIAL IV STA (20:26)
[2025-06-08] VITALS (8 sets, daily range): BP systolic 114–127; BP diastolic 78–91; PULSE 99–121; RESP 12–20; TEMP 97.5–98.4; O2SAT 94–97
[2025-06-08 07:01] LABS: Hematocrit 30.8 % (36.0-46.0); Hemoglobin 10.1 g/dL (12.2-16.2); Mean Corpuscular Hemoglobin 28.1 pg (28.0-32.0); Mean Corpuscular Volume 85.1 fL (80.0-100.0); Nucleated Red Blood Cells % 0.1 %
[2025-06-08 07:11] LABS: Potassium 3.6 mmol/L (3.5-5.1); Sodium 142 mmol/L (136-145)
[2025-06-08 07:12] LABS: Anion Gap 9 (5-15); Calcium 8.9 mg/dL (8.7-10.4); Carbon Dioxide 24 mmol/L (20-31)
[2025-06-08 07:14] LABS: Chloride 109 mmol/L (98-107)
[2025-06-08 07:17] LABS: BUN/Creatinine Ratio 11.3 (10.0-20.0); Glucose 101 mg/dL (74-106)
[2025-06-08 07:21] LABS: Blood Urea Nitrogen 6 mg/dL (9-23)
[2025-06-08] MEDS ORDERED: GABA-1250 PO (10:18)
[2025-06-08] MEDS ORDERED: CARV3.1240 PO (10:21)
[2025-06-08] MEDS ORDERED: FERR1TAB36 PO (10:21)
[2025-06-08] MEDS ORDERED: CETI10TA2 PO (10:21)
[2025-06-08] MEDS ORDERED: NALO1TAB4 PO (10:23)
[2025-06-08] MEDS ORDERED: NALO1TAB PO (10:23)
[2025-06-08] MEDS ORDERED: DOCU-94 PO (10:26)
[2025-06-08] MEDS ORDERED: ZOFR4T PO (10:26)
[2025-06-08] MEDS ORDERED: CHOL20007 PO (10:26)
[2025-06-08] MEDS ORDERED: OMEP-434 PO (10:28)
[2025-06-08] MEDS: ENOXAPARIN SOD 40 MG/0.4 ML SYRINGE SC SCH (11:02)
[2025-06-08] MEDS: DOCUSATE SOD 100 MG CAP PO SCH (11:02)
[2025-06-08] MEDS: CARVEDILOL 3.125 MG TAB PO SCH (11:02)
[2025-06-08] MEDS: GABAPENTIN 300 MG CAP PO SCH (11:04)
[2025-06-08] MEDS: CHOLECALCIFEROL (VITD3) 1,000UNIT=25mCg TAB PO SCH (11:04)
--- NOTE | 2025-06-08 11:36 | DVHINCON2 ---
Consultation - Surgical Date Seen: Jun 08, 2025 Referring Physician Reason for Consultation Facial abscess History of Present Illness History of Present Illness Mrs. Castaneda is a 45-year-old female who was admitted due to left face infection with abscess formation. Patient has been dealing with this issue for 3 months now, and has been on multiple antibiotic regimens. Patient does not recall any trauma to the area, dental infections or insect bites, but was told 3 months ago that this was probably due to spider bite. Patient denies fevers, chills, nausea, vomiting, loss of appetite. Patient has no further complaints at this time. Past Medical/Surgical History Past Medical/Surgical History Past Medical History multiple myeloma, psoriasis arthritis, fibromyalgia Past Surgical History: None Family and Social History Family and Social History Family History: None Smoke: 1 pack per day ALCOHOL: none Drugs: None Lives: with Family Allergies and medications Allergies: Coded Allergies: Aspirin (Verified Allergy, Unknown, 05/27/23) Ibuprofen (Verified Allergy, Unknown, 05/27/23) Sulfa Antibiotics (Verified Allergy, Unknown, 05/02/25) Home Meds Active Scripts Clindamycin Hcl (Clindamycin Hcl) 300 Mg Cap, 1 CAP PO TID, #30 CAP Prov:SUSAN ANN 05/02/25 Acetaminophen (Tylenol 8 Hour Arthritis) 650 Mg Tab, 650 MG PO TID, #30 TAB Prov:SUSAN ANN 04/17/25 Cephalexin Monohydrate (Cephalexin) 500 Mg Cap, 1 CAP PO QID, #40 CAP Prov:SUSAN ANN 04/17/25 Ferrous Sulfate (Iron) 325 Mg Tab, 325 MG PO DAILY for 30 Days, #30 TAB Prov:LEILANI ALMEIDA FINISH REPAIR WORKER 06/06/23 Metoprolol Tartrate (Metoprolol Tartrate) 25 Mg Tab, 0.5 TAB PO BID for 60 Days, #60 TAB 1 Refill Prov:LEILANI ALMEIDA NP 06/06/23 Hydrocodone-Acetaminophen (Hydrocodone Bitartrate/AC 5-325 mg) 1 Tab Tab, 1 TAB PO Q6HP PRN for 7 Days, #28 TAB Prov:LEILANI ALMEIDA NP 06/06/23 Reported Medications Omeprazole Magnesium (Omeprazole) 20 Mg Tab, 20 MG PO DAILY, TAB 06/08/25 Docusate Sodium (Colace) 100 Mg Cap, 1 CAP PO DAILY, #30 CAP 06/08/25 Cholecalciferol (VITAMIN D3) 2,000 Unit Tab, 1 TAB PO DAILY, #30 TAB 5 Refills 06/08/25 Ondansetron Odt 4MG Tab (ZOFRAN PO) 4 Mg Tb, 4 MG PO TID, TAB ODT TAB-DISSOLVE IN MOUTH, THEN SWALLOW 06/08/25 Naloxegol Oxalate (Movantik) 25 Mg Tab, 25 MG PO, TAB 06/08/25 Naloxegol Oxalate (Movantik) 12.5 Mg Tab, 12.5 MG PO DAILY, TAB 06/08/25 Cetirizine Hcl (Kls Aller-Aislinn) 10 Mg Tab, 1 TAB PO DAILY, #30 TAB 3 Refills 06/08/25 Ferrous Sulfate (Iron (Ferrous Sulfate)) 50 Mg Tab, 325 MG PO DAILY, TAB 06/08/25 Carvedilol (Carvedilol) 3.125 Mg Tab, 1 TAB PO BID, #60 TAB 3 Refills 06/08/25 Gabapentin (Gabapentin) 300 Mg Cap, 1 CAP PO TID, #90 CAP 5 Refills 06/08/25 Hydrocodone-Acetaminophen (Hydrocodone/Acetaminophen 5-325 mg) 1 Tab Tab, 1 TAB PO, TAB 05/28/23 Cyclobenzaprine Hcl (Cyclobenzaprine Hcl) 10 Mg Tab, 10 MG PO, TAB 05/28/23 Gabapentin (GABAPENTIN) 250 Mg/5 Ml Ena, 250 MG PO, ML 05/28/23 Duloxetine HCl (Duloxetine HCl) 30 Mg Cap, 30 MG PO, CAP 05/28/23 Cetirizine Hcl (CETIRIZINE HCL ALLERGY CH) 5 Mg/5 Ml Ena, 5 MG PO, ML 05/28/23 Review of systems Review of Systems: HEENT:Abnormal (See HPI), CVS:Normal, RESPIRATORY:Normal, GI:Normal, :Normal, MSK:Normal, NEURO:Normal Examination Vital signs Vital Signs Date Time Temp Pulse Resp B/P (MAP) Pulse Ox O2 Delivery O2 Flow Rate FiO2 06/08/25 11:02 108 122/83 06/08/25 09:00 98.1 12 96 98.1 06/07/25 20:00 Room Air* 0 21 Medications Current Medications Medications (Trade) Dose Ordered Sig/Estuardo Route PRN Reason Start Time Stop Time Status Last Admin Enoxaparin Sodium (Lovenox) 40 mg DAILY SC 06/08/25 10:00 06/08/25 11:02 Metoclopramide HCl (Reglan Injection) 10 mg ONCE STAT IV 06/07/25 20:12 06/07/25 20:19 DC 06/07/25 20:26 Gabapentin (Neurontin Capsule) 300 mg DAILY PO 06/08/25 10:00 06/08/25 11:04 Carvedilol (Coreg Tablet) 3.125 mg Q12HR PO 06/08/25 10:00 06/08/25 11:02 Cholecalciferol (Vitamin D3 Tablet) 1,000 unit DAILY PO 06/08/25 10:00 06/08/25 11:04 Docusate Sodium (Colace Capsule) 100 mg BID PO 06/08/25 10:00 06/08/25 11:02 Ondansetron HCl (Zofran Po) 4 mg Q8HP PRN PO NAUSEA / VOMITING 06/08/25 09:15 Laboratory Labs Test 06/08/25 06:34 06/06/25 12:10 06/06/25 09:03 06/05/25 22:42 Range/Units White Blood Count 10.1 4.4-10.8 10^3/uL Red Blood Count 3.61 L 4.0-5.20 10^6/uL Hemoglobin 10.1 L 12.2-16.2 g/dL Hematocrit 30.8 L 36.0-46.0 % Mean Corpuscular Volume 85.1 80.0-100.0 fL Mean Corpuscular Hemoglobin 28.1 28.0-32.0 pg Mean Corpuscular Hemoglobin Concent 33.0 32.0-36.0 g/dL Red Cell Distribution Width 15.9 H 11.8-14.3 % Platelet Count 380 140-450 10^3/uL Mean Platelet Volume 8.3 6.9-10.8 fL Neutrophils (%) (Auto) 71.8 37.0-80.0 % Lymphocytes (%) (Auto) 15.4 10.0-50.0 % Monocytes (%) (Auto) 9.2 0.0-12.0 % Eosinophils (%) (Auto) 2.9 0.0-7.0 % Basophils (%) (Auto) 0.7 0.0-2.0 % Neutrophils # (Auto) 7.3 1.6-8.6 10 ^3/uL Lymphocytes # (Auto) 1.6 0.4-5.4 10 ^3/uL Monocytes # (Auto) 0.9 0-1.3 10 ^3/uL Eosinophils # (Auto) 0.3 0-0.8 10 ^3/uL Basophils # (Auto) 0.1 0-0.2 10 ^3/uL Nucleated Red Blood Cells 0.1 % Sodium Level 142 136-145 mmol/L Potassium Level 3.6 3.5-5.1 mmol/L Chloride Level 109 H 98-107 mmol/L Carbon Dioxide Level 24 20-31 mmol/L Anion Gap 9 5-15 Blood Urea Nitrogen 6 L 9-23 mg/dL Creatinine 0.53 L 0.550-1.02 mg/dL Glomerular Filtration Rate Calc 115 >90 mL/min BUN/Creatinine Ratio 11.3 10.0-20.0 Serum Glucose 101 74-106 mg/dL Calcium Level 8.9 8.7-10.4 mg/dL Hemoglobin A1c 5.6 <5.7 % A1C Iron Level 14 L 50-170 ug/dL Total Iron Binding Capacity 255 250-425 ug/dL Percent Iron Saturation 5.5 L 15-50 % Vitamin B12 Level 367 211-911 pg/mL Vitamin D 25-Hydroxy 43.1 30.0-100 ng/mL Urine Color Light-yellow Yellow Urine Clarity Clear Clear Urine pH 6.0 5.0-9.0 Urine Specific Leopold 1.012 1.001-1.035 Urine Protein Negative Negative Urine Ketones Negative Negative Urine Blood Negative Negative /uL Urine Nitrite Negative Negative Urine Bilirubin Negative Negative Urine Urobilinogen Normal Negative mg/dL Urine Leukocyte Esterase Negative Negative /uL Urine RBC 1 0 - 4 /hpf Urine Microscopic WBC 2 0-5 /HPF Urine Squamous Epithelial Cells Few <5 /hpf Urine Bacteria Few H None Seen /hpf Urine Glucose Normal Normal mg/dL Urine Opiates Screen Pos NEGATIVE Urine Fentanyl Screen Neg NEGATIVE Urine Barbiturates Screen Neg NEGATIVE Urine Phencyclidine Screen Neg NEGATIVE Urine Amphetamines Screen Neg NEGATIVE Urine Benzodiazepines Screen Neg NEGATIVE Urine Cocaine Screen Neg NEGATIVE Urine Cannabinoids Screen Neg NEGATIVE Influenza Type A Antigen Negative Negative Influenza Type B Antigen Negative Negative SARS-CoV-2 Antigen (Rapid) Negative NEGATIVE Test 06/05/25 15:43 Range/Units Erythrocyte Sedimentation Rate 74 H 0-20 mm/hr Lactic Acid Level 1.4 0.4-2.0 mmol/L Magnesium Level 1.8 1.6-2.6 mg/dL Total Bilirubin 0.2 0.2-1.0 mg/dL Direct Bilirubin < 0.1 <0.3 mg/dL Aspartate Amino Transferase (AST) 24 13-40 U/L Alanine Aminotransferase (ALT) 27 7-40 U/L Alkaline Phosphatase 142 H 46-116 U/L C-Reactive Protein High Sensitivity 7.91 H <1.0 mg/dL Total Protein 7.6 5.7-8.2 g/dL Albumin 4.4 3.2-4.8 g/dL Microbiology Date/Time Source Procedure Growth Status 06/06/25 09:03 Voided Urine Urine Culture - Preliminary Resulted 06/06/25 07:54 Face Gram Stain - Final Resulted 06/06/25 07:54 Face Wound Culture - Preliminary No growth Resulted 06/05/25 15:53 Blood Blood Culture - Preliminary NO GROWTH AFTER 48 HOURS OF INCUBATION. Resulted Examination: GENERAL:Normal (Alert awake and oriented x3), HEENT:Abnormal (Left cheek area with scabbing and active pus drainage, minimal surrounding erythema, no fluctuance, no crepitus, no necrosis, tender. Multiple missing dental pieces, no erythema/edema/pus/drainage/wounds in the gums or teeth), NECK:Normal (No cervical adenopathy) Problem List/Assessment/Plan Problems: (1) Facial abscess Assessment and Plan is a [age]-year-old female who presents here with a facial abscess on the left side, this issue has been present for the last 3 months and she has been on multiple antibiotic courses for it. On physical exam there is active drainage from the site upon expression, and per patient cultures were sent yesterday and are still pending. CT was reviewed and shows a complex fluid collection on the left cheek area that extends all the way to the maxillary bone, there is some free air surrounding the outer side of the maxillary bone, there is also left maxillary sinusitis with air in it. Given that this is a nonhealing abscess that extends all the way to the maxillary bone I recommend obtaining MRI due to possible osteomyelitis. Patient will also benefit from maxillofacial specialist consultation and possible transfer, given the deep nature of the abscess. 1. Continue Zosyn and tailor pending culture results 2. MRI due to possibility of osteomyelitis 3. Maxillofacial specialist consultation and possible transfer given the deep nature of the abscess, extending to the left maxillary bone, with also left sinusitis Plan discussed with Plan discussed with: Patient Visit Coding Surgery Date of Service if different f: Jun 08, 2025 Billing Provider: AMINAH WOLFF MD Surgery Visit Codes: 71970 - INP CONSULT <110 MIN AMINAH WOLFF MD Jun 08, 2025 11:35
--- NOTE | 2025-06-08 13:43 | ECG ---
[facility] Test Date: 2025-06-07 Test Time: 21:06:40 Pat Name: LILI US Department: Room: 0290 A Gender: F Mechanical Research Engineer: et : 1980 Requested By: BETHANY QUIROZ Order Number: [id number] Reading MD: Zach Flores Measurements Intervals Shock Rate: 112 P: 50 OR: 162 QRS: 27 QRSD: 88 T: 57 QT: 325 QTc: 444 Interpretive Statements Sinus tachycardia Anterior infarct, old Electronically Signed On 06-10-2025 17:20:03 PST by Zach Flores Please click the below link to view image of tracing.
--- NOTE | 2025-06-08 13:43 | ECG ---
[facility] Test Date: 2025-06-07 Test Time: 21:04:25 Pat Name: LILI US Department: Room: 0290 A Gender: F Publishing Manager: et : 1980 Requested By: BETHANY QUIROZ Order Number: [id number] Reading MD: Zach Flores Measurements Intervals [place] Rate: 110 P: 47 WV: 164 QRS: 25 QRSD: 91 T: 57 QT: 332 QTc: 450 Interpretive Statements Sinus tachycardia Anterior infarct, old Electronically Signed On 06-10-2025 17:20:01 PST by Zach Flores Please click the below link to view image of tracing.
[2025-06-08] MEDS: ONDANSETRON ODT 4 MG TAB PO PRN (18:03)
[2025-06-08] MEDS: MORPHINE SULFATE INJ 2 MG/ml SYRG IV PRN (18:04)
--- NOTE | 2025-06-08 19:17 | DVHPNRES ---
Progress Note Date Seen: Jun 08, 2025 Resident Creating Document: CAMDEN NG RESIDENT Has the PT tested + for MRSA If YES, has PT been informed?: No Medical Necessity Reason Pt with a Central, PICC or Fol: No Subjective Review of Systems Holly White is a 45-year-old female patient, with past medical history of multiple myeloma, psoriasis arthritis and fibromyalgia, The patient came to [facility] ED with complaint of redness and swelling of the left cheek. The patient reports having a non-healing lump on the left side of her face/cheek for the past 3 months. The pain was described as burning, rated 8/10 in intensity, associated with blurred vision. She states that she has visited this ED twice previously for the same complaint. At that time, the ED doctors said it looked like a spider bite, and she was prescribed antibiotics, which provided only short-term improvement before the symptoms worsened again. The patient denies fever, chills, shortness of breath, chest pain, abdominal pain, nausea, vomiting, headache, or other complaints. On evaluation in the ED, patient is afebrile, vitals are stable. Initial labs show normocytic anemia, other labs within normal limits. The patient was started on IV antibiotics and IV fluids. Patient is admitted for further evaluation and management. Past Medical History:multiple myeloma, psoriasis arthritis, fibromyalgia Past Surgical History: None Family History: None Social history: Smoke: 1 pack per day Alcohol: none Drugs: None Lives: with [facility] course: On 06/06/25 The patient was evaluated and examined at the bedside. VS, Labs and chart was reviewed. The patient complaints of facial pain 8/10. Blood and wound cultures were ordered. The patient is receiving IV antibiotics, Unyasin was stopped and Sozyn was started today. Wound consult was placed. Surgical consult was placed, the recommend transfer to high level of care. The patient will be transferring to [place] for plastic surgery evaluation and management. On 06/07/25, The patient was seen and examined on the bedside. She is alert oriented x3. Mentioned last night the bump popped up and pus coming out from this, complaining of pain and redness around the lump in the left cheek. Consulted bridge ironworker yesterday for higher level of care transfer for facial/plastic surgery for facial cellulitis. On 06/08/25, the patient was evaluated and examined at bedside. VS, labs and chart was reviewed. CT Maxillo-facial showed: Complex collection in the left facial region measuring 2.7 x 2.1 x 2.5 cm, likely representing abscess/ phlegmon and communicates with the skin surface. Complete opacification of the left maxillary sinus with some enhancement which may represent the etiology for the left facial cellulitis. No definitive osseous erosion seen. The patient's maxilla is edentulous but there is a periapical lucency extending into the left maxillary sinus, coronal image 29 of 102, which could represent synchronous odontogenic component. Small right mastoid effusion. Due to this finding and the multiples co-morbilities this patient is being transferred to a higher level of care. Today, the patient reports feeling well, the abscess has start to drain, the patient reports improvement in pain to 5/10 and improvement in edema and erythema. Dr. Eller is in the wait for the peer to peer case presentation. The case management rn: [facility] has requested the transferred and a bed is pending to be assigned to the patient. The patient continues with IV antibiotics: Zosyn and Doxycycline and pain management. Patient's medication reconciliation has been performed. We will continue following up the progress of this patient. Review of Systems Eyes: No Pain, No Vision change, No Conjunctivae inflammation, No Eyelid inflammation, No Other, No Redness ENT: No Ear pain, No Ear discharge, No Nose pain, No Nose discharge, No Nose congestion, No Mouth pain, No Mouth swelling, No Throat pain, No Throat swelling, No Other Cardiovascular: No Chest Pain, No Palpitations, No Orthopnea, No Paroxysmal No Dyspnea, No Edema, No Lt Headedness, No Other Respiratory: No Cough, No Dry, No Shortness of breath, No SOB with exertion, No Wheezing, No Hemoptysis, No Pleuritic Pain, No Sputum, No Other Gastrointestinal: No Nausea, No Vomiting, No Abdominal Pain, No Diarrhea, No Constipation, No Melena, No Hematochezia, No Other Genitourinary: No Dysuria, No Frequency, No Incontinence, No Hematuria, No Retention, No Other Musculoskeletal: No other, No neck pain, No shoulder pain, No arm pain, No back pain, No hand pain, No leg pain, No foot pain Skin: Rash, No Lesions, No Jaundice, No Bruising, No Other. Lump on left face/cheek with localized redness, hardness, and swelling Allergies: Aspirin (Verified Allergy, Unknown, 05/27/23). Ibuprofen (Verified Allergy, Unknown, 05/27/23). Sulfa Antibiotics (Verified Allergy, Unknown, 05/02/25) Objective vital signs Vital Sign Date Time Temp Pulse Resp B/P (MAP) Pulse Ox O2 Delivery O2 Flow Rate FiO2 06/08/25 18:04 82 16 112/74 06/08/25 16:40 98.0 97 98.0 06/08/25 08:00 Room Air* 0 21 Total Intake and Output 06/07/25 06/07/25 06/08/25 15:00 23:00 07:00 Intake Total 300 ml 480 ml 500 ml Balance 300 ml 480 ml 500 ml medications Current Medications Medications Dose Ordered Sig/Estuardo Route Start Time Stop Time Status Last Admin Dose Admin Sodium Chloride 10 ml Q8HR IV 06/05/25 22:00 06/08/25 14:00 10 ML Acetaminophen/ Hydrocodone Bitart 1 tab Q4HP PRN PO 06/05/25 21:00 06/08/25 11:04 1 TAB Acetaminophen 650 mg Q6HP PRN PO 06/05/25 21:00 Doxycycline Hyclate 100 ml @ 50 mls/hr BID IV 06/05/25 22:00 06/08/25 09:36 50 MLS/HR Cyclobenzaprine HCl 10 mg DAILY PO 06/06/25 10:00 06/08/25 09:36 10 MG Duloxetine HCl 30 mg DAILY PO 06/06/25 10:00 06/06/25 11:30 30 MG Piperacillin Sod/ Tazobactam Sod 100 ml @ 25 mls/hr Q8H IV 06/06/25 18:00 06/08/25 18:04 25 MLS/HR Enoxaparin Sodium 40 mg DAILY SC 06/08/25 10:00 06/08/25 11:02 40 MG Gabapentin 300 mg DAILY PO 06/08/25 10:00 06/08/25 11:04 300 MG Carvedilol 3.125 mg Q12HR PO 06/08/25 10:00 06/08/25 11:02 3.125 MG Cholecalciferol 1,000 unit DAILY PO 06/08/25 10:00 06/08/25 11:04 1,000 UNIT Docusate Sodium 100 mg BID PO 06/08/25 10:00 06/08/25 11:02 100 MG Ondansetron HCl 4 mg Q8HP PRN PO 06/08/25 09:15 06/08/25 18:03 4 MG Morphine Sulfate 1 mg Q6HP PRN IV 06/08/25 16:45 06/08/25 18:04 1 MG Examination General Appearance: Cooperative. Well developed. Well nourished. NAD HEENT: Erythema and mild swelling on the left face with a fluctuant bump. Palpable lump noted on the left cheek, fluctuate, draining yellow thick fluid, mildly tender to palpation. Pulmonary/Respiratory: Chest non-tender. Clear bilateral breath sounds, no crackles, no wheezing. Cardiovascular/Chest: Regular rate and rhythm. No murmurs. No JVD. Peripheral Pulses: 2+ Radial (R). 2+ Radial (L). 2+ Pedal (R). 2+ Pedal (L) Abdominal Exam: Normal bowel sounds. Soft. normal abdomen, no visible veins, Nontender. No hepatosplenomegaly. No masses Ankle Exam: Negative ankle edema Lower extremities: Negative lower extremity edema Neuro/Mental Status: A&O x4. Coherent. Spine: Presence of three infusion sites over vertebral region Thoughts/Psych: Normal thought pattern. Appropriate mood and affect. Good judgement and insight Skin: Dry, erythematous color, warm, with psoriatic rash. Left face lump with localized redness, hardness, and swelling on the left face as described above. laboratory and microbiology Laboratory Tests 06/08/25 06:34 Test 06/08/25 06:34 Range/Units Serum Glucose 101 74-106 mg/dL Microbiology Date/Time Source Procedure Growth Status 06/06/25 09:03 Voided Urine Urine Culture - Final Complete 06/06/25 07:54 Face Gram Stain - Final Resulted 06/06/25 07:54 Face Wound Culture - Preliminary No growth Resulted 06/05/25 15:53 Blood Blood Culture - Preliminary NO GROWTH AFTER 72 HOURS OF INCUBATION. Resulted Labs and/or images reviewed: Labs reviewed by me, Image(s) reviewed by me Problem List/Assessment/Plan Problem List/Assessment/Plan #Sepsis due to acute facial cellulitis/abscess #Acute facial cellulitis/abscess #Intractable facial pain due to acute cellulitis /abscess UA and UDS: negative Blood culture: negative at 72hrs Wound consult: on going. Wound culture: Rare Epithelial Cells, No organisms seen. Zosyn 3.375mg IV Q8hr Doxycycline 100 MG IV bid pain management with Tylenol and [place] IV NS 75 MLS/HR CT Facial/Maxilar: The patient's maxilla is edentulous but there is a periapical lucency extending into the left maxillary sinus, coronal image 29 of 102, which could represent synchronous odontogenic component. Small right mastoid effusion. -Consider facial MRI. #Chronic Multiple myeloma #Chronic Normocytic hypochromic anemia likely due to multiple myeloma On chemotherapy once a week at [facility] with Dr. Jolley (Oncology) Sulfate ferrous 327mg po daily #Chronic Fibromyalgia Cyclobenzaprine 10 MG PO daily Duloxetine 30 MG PO daily Gabapentin 300mg po daily #Choric Psoriasis Skyrizi (Home medication) #Chronic Sinus tachycardia Carvedilol 3.125 po bid #Tobacco use disorder Counseled for 16 minutes on tobacco use cessation Diet: Regular DVT prophylaxis Code: Full code PCP: [place] [facility], patient does not remember the name. Plan discussed with Dr. Eller Plan discussed with: Patient, Other (RN) My Orders My Orders Orders - CAMDEN NG RESIDENT Procedure Category Date Status Time Gabapentin Capsule PHA 06/08/25 In Process (Neurontin Capsule) 10:00 Carvedilol Tablet PHA 06/08/25 In Process (Coreg Tablet) 10:00 Cholecalciferol PHA 06/08/25 In Process Tablet (Vitamin D3 10:00 Docusate Sodium PHA 06/08/25 In Process Capsule (Colace 10:00 Ondansetron Po PHA 06/08/25 In Process (Zofran Po) 09:15 Morphine Sulfate PHA 06/08/25 In Process Injection 16:45 Dietary Evaluation Review Comments: Nutrition Recommendation: 1) Consider Ferrous sulfate 325mg daily 2) Monitor PO intake, lab values, weight trend, and I/O Expected Outcomes/Goals: Wound to improve Lab values to improve fu 5-7 days Date of Service: Jun 08, 2025 Billing Provider: BEATRIZ ELLER MD Common Visit Codes: 55770-FFCSQKIVZY INP/OBS CARE(HIGH) Secondary Visit Codes: 87576-[id number] CHNG SMOKING >10MIN (16 minutes) CAMDEN NG RESIDENT Jun 08, 2025 19:16 BEATRIZ ELLER MD Jun 10, 2025 07:47
[2025-06-09] VITALS (8 sets, daily range): BP systolic 107–126; BP diastolic 73–86; PULSE 98–113; RESP 16–18; TEMP 97.9–98.3; O2SAT 93–97
[2025-06-09] MEDS: PANTOPRAZOLE 40 MG TAB PO SCH (05:32)
[2025-06-09] MEDS: ACETAMINOPHEN 325 MG TAB PO PRN (06:29)
[2025-06-09 07:33] LABS: Hematocrit 30.6 % (36.0-46.0); Hemoglobin 10.0 g/dL (12.2-16.2); Mean Corpuscular Hemoglobin 28.0 pg (28.0-32.0); Mean Corpuscular Volume 86.1 fL (80.0-100.0); Nucleated Red Blood Cells % 0.2 %
[2025-06-09 07:34] LABS: Sodium 141 mmol/L (136-145)
[2025-06-09 07:35] LABS: Anion Gap 9 (5-15); Carbon Dioxide 25 mmol/L (20-31)
[2025-06-09 07:36] LABS: Calcium 8.8 mg/dL (8.7-10.4)
[2025-06-09 07:41] LABS: BUN/Creatinine Ratio 11.1 (10.0-20.0); Glucose 90 mg/dL (74-106)
[2025-06-09 07:44] LABS: Blood Urea Nitrogen 6 mg/dL (9-23); Chloride 107 mmol/L (98-107); Potassium 3.4 mmol/L (3.5-5.1)
[2025-06-09] MEDS: FERROUS SULFATE 325mg EC TAB PO SCH (09:46)
[2025-06-09] MEDS: POTASSIUM CHL 20MEQ/100ML 100 ML IV SCH (09:47)
[2025-06-09] MEDS: POTASSIUM CHL 20 Meq TABLET PO ONE (13:05)
--- NOTE | 2025-06-09 18:06 | DVHPNRES ---
Progress Note Date Seen: Jun 09, 2025 Resident Creating Document: BETHANY QUIROZ RESIDENT Has the PT tested + for MRSA If YES, has PT been informed?: No Medical Necessity Reason Pt with a Central, PICC or Fol: No Subjective Review of Systems Holly White is a 45-year-old female patient, with past medical history of multiple myeloma, psoriasis arthritis and fibromyalgia, The patient came to [facility] ED with complaint of redness and swelling of the left cheek. The patient reports having a non-healing lump on the left side of her face/cheek for the past 3 months. The pain was described as burning, rated 8/10 in intensity, associated with blurred vision. She states that she has visited this ED twice previously for the same complaint. At that time, the ED doctors said it looked like a spider bite, and she was prescribed antibiotics, which provided only short-term improvement before the symptoms worsened again. The patient denies fever, chills, shortness of breath, chest pain, abdominal pain, nausea, vomiting, headache, or other complaints. On evaluation in the ED, patient is afebrile, vitals are stable. Initial labs show normocytic anemia, other labs within normal limits. The patient was started on IV antibiotics and IV fluids. Patient is admitted for further evaluation and management. Past Medical History:multiple myeloma, psoriasis arthritis, fibromyalgia Past Surgical History: None Family History: None Social history: Smoke: 1 pack per day Alcohol: none Drugs: None Lives: with [facility] course: On 06/06/25 The patient was evaluated and examined at the bedside. VS, Labs and chart was reviewed. The patient complaints of facial pain 8/10. Blood and wound cultures were ordered. The patient is receiving IV antibiotics, Unyasin was stopped and zozyn was started today. Wound consult was placed. Surgical consult was placed, the recommend transfer to high level of care. The patient will be transferring to [place] for plastic surgery evaluation and management. On 06/07/25, The patient was seen and examined on the bedside. She is alert oriented x3. Mentioned last night the bump popped up and pus coming out from this, complaining of pain and redness around the lump in the left cheek. Consulted table worker packager yesterday for higher level of care transfer for facial/plastic surgery for facial cellulitis. On 06/08/25, the patient was evaluated and examined at bedside. VS, labs and chart was reviewed. CT Maxillo-facial showed: Complex collection in the left facial region measuring 2.7 x 2.1 x 2.5 cm, likely representing abscess/ phlegmon and communicates with the skin surface. Complete opacification of the left maxillary sinus with some enhancement which may represent the etiology for the left facial cellulitis. No definitive osseous erosion seen. The patient's maxilla is edentulous but there is a periapical lucency extending into the left maxillary sinus, coronal image 29 of 102, which could represent synchronous odontogenic component. Small right mastoid effusion. Due to this finding and the multiples co-morbilities this patient is being transferred to a higher level of care. Today, the patient reports feeling well, the abscess has start to drain, the patient reports improvement in pain to 5/10 and improvement in edema and erythema. Dr. Greenwood is in the wait for the peer to peer case presentation. The insurance case manager: [facility] has requested the transferred and a bed is pending to be assigned to the patient. The patient continues with IV antibiotics: zozin and Doxycyclin and pain management. Patient's medication reconciliation has been performed. We will continue following up the progress of this patient. 06/09/2025-patient was seen today at bedside, less than chest reviewed. Dr. Murillo spoke to maxillofacial surgeon from [facility], as this patient does not have to be transferred to [facility], no indication. We will continue antibiotic Zosyn and doxycycline. Canceld order for transfer to higher level care Objective vital signs Vital Sign Date Time Temp Pulse Resp B/P (MAP) Pulse Ox O2 Delivery O2 Flow Rate FiO2 06/09/25 16:49 98.0 113 16 107/73 (84) 97 98.0 06/09/25 08:16 Room Air* 0 21 Total Intake and Output 06/08/25 06/08/25 06/09/25 15:00 23:00 07:00 Intake Total 200 ml 1160 ml 970 ml Balance 200 ml 1160 ml 970 ml medications Current Medications Medications Dose Ordered Sig/Estuardo Route Start Time Stop Time Status Last Admin Dose Admin Sodium Chloride 10 ml Q8HR IV 06/05/25 22:00 06/09/25 13:38 10 ML Acetaminophen/ Hydrocodone Bitart 1 tab Q4HP PRN PO 06/05/25 21:00 06/08/25 11:04 1 TAB Acetaminophen 650 mg Q6HP PRN PO 06/05/25 21:00 06/09/25 06:29 650 MG Doxycycline Hyclate 100 ml @ 50 mls/hr BID IV 06/05/25 22:00 06/09/25 12:09 50 MLS/HR Cyclobenzaprine HCl 10 mg DAILY PO 06/06/25 10:00 06/09/25 09:46 10 MG Duloxetine HCl 30 mg DAILY PO 06/06/25 10:00 06/06/25 11:30 30 MG Piperacillin Sod/ Tazobactam Sod 100 ml @ 25 mls/hr Q8H IV 06/06/25 18:00 06/09/25 17:40 25 MLS/HR Enoxaparin Sodium 40 mg DAILY SC 06/08/25 10:00 06/09/25 09:49 40 MG Gabapentin 300 mg DAILY PO 06/08/25 10:00 06/09/25 09:46 300 MG Carvedilol 3.125 mg Q12HR PO 06/08/25 10:00 06/09/25 09:46 3.125 MG Cholecalciferol 1,000 unit DAILY PO 06/08/25 10:00 06/09/25 09:46 1,000 UNIT Docusate Sodium 100 mg BID PO 06/08/25 10:00 06/09/25 09:46 100 MG Ondansetron HCl 4 mg Q8HP PRN PO 06/08/25 09:15 06/09/25 13:10 4 MG Morphine Sulfate 1 mg Q6HP PRN IV 06/08/25 16:45 06/09/25 13:11 1 MG Pantoprazole Sodium 40 mg DAILY@0600 PO 06/09/25 06:00 06/09/25 05:32 40 MG Ferrous Sulfate 325 mg DAILY PO 06/09/25 10:00 06/09/25 09:46 325 MG Examination General Appearance: Cooperative. Well developed. Well nourished. NAD HEENT: Erythema and mild swelling on the left face with a fluctuant bump. Palpable lump noted on the left cheek, fluctuate, draining yellow thick fluid, mildly tender to palpation. Pulmonary/Respiratory: Chest non-tender. Clear bilateral breath sounds, no crackles, no wheezing. Cardiovascular/Chest: Regular rate and rhythm. No murmurs. No JVD. Peripheral Pulses: 2+ Radial (R). 2+ Radial (L). 2+ Pedal (R). 2+ Pedal (L) Abdominal Exam: Normal bowel sounds. Soft. normal abdomen, no visible veins, Nontender. No hepatospenomegaly. No masses Ankle Exam: Negative ankle edema Lower extremities: Negative lower extremity edema Neuro/Mental Status: A&O x4. Coherent. Spine: Presence of three infusion sites over vertebral region Thoughts/Psych: Normal thought pattern. Appropriate mood and affect. Good judgement and insight Skin: Dry, erythematus color, warm, with psoriatic rash. Left face lump with localized redness, hardness, and swelling on the left face as described above. laboratory and microbiology Laboratory Tests 06/09/25 06:19 Test 06/09/25 06:19 Range/Units Serum Glucose 90 74-106 mg/dL Microbiology Date/Time Source Procedure Growth Status 06/06/25 09:03 Voided Urine Urine Culture - Final Complete 06/06/25 07:54 Face Gram Stain - Final Resulted 06/06/25 07:54 Face Wound Culture - Preliminary Resulted 06/05/25 15:53 Blood Blood Culture - Preliminary NO GROWTH AFTER 72 HOURS OF INCUBATION. Resulted Problem List/Assessment/Plan Problem List/Assessment/Plan Problem List/Assessment/Plan #Sepsis likely due to acute facial cellulitis #Acute facial cellulitis #Intractable facial pain due to acute cellulitis UA and UDS: negative Blood culture: negative at 72hrs Wound consult: on going. Wound culture: Rare Epithelial Cells, No organisms seen. Zosyn 3.375mg IV Q8hr Doxycycline 100 MG IV bid pain management with Tylenol and [place] CT Facial/Maxilar: The patient's maxilla is edentulous but there is a periapical lucency extending into the left maxillary sinus, coronal image 29 of 102, which could represent synchronous odontogenic component. Small right mastoid effusion. Case was discussed with Maxilar surgeon and radiologist: abscess is very superficial and is not related with the teeth, patient is edentulous, per Radiologist and Surgeon recommendation no need of transfer for now, patient can f/u ENT as outpatient, but for now patient needs IV ab #Chronic Multiple myeloma #Chronic Normocytic hypochromic anemia likely due to multiple myeloma On chemotherapy once a week at [facility] with Dr. Jolley (Oncology) Sulfate ferrous 327mg po daily #Chronic Fibromyalgia Cyclobenzaprine 10 MG PO daily Duloxetine 30 MG PO daily Gabapentin 300mg po daily #Choric Psoriasis Skyrizi (Home medication) #Chronic Sinus tachycardia Carvedilol 3.125 po bid Diet: Regular DVT prophylaxis Goals of care: Full code, discussed for >35 minutes Code: Full code PCP: [place] [facility], patient does not remember the name. Plan discussed with Dr. Romeo Plan discussed with: Patient, RN Plan discussed with: Patient, Other (RN) Dietary Evaluation Review Comments: Nutrition Recommendation: 1) Consider Ferrous sulfate 325mg daily 2) Monitor PO intake, lab values, weight trend, and I/O Expected Outcomes/Goals: Wound to improve Lab values to improve fu 5-7 days BETHANY QUIROZ RESIDENT Jun 09, 2025 18:06 AMY JULIAN RESIDENT Jun 10, 2025 06:53
[2025-06-10 01:02] VITALS: BP 116/78; PULSE 106; RESP 18; TEMP 99; O2SAT 95
[2025-06-10 05:00] VITALS: BP 100/69; PULSE 104; RESP 17; TEMP 98.3; O2SAT 96
[2025-06-10 07:36] LABS: Hematocrit 30.6 % (36.0-46.0); Hemoglobin 10.2 g/dL (12.2-16.2); Mean Corpuscular Hemoglobin 28.5 pg (28.0-32.0); Mean Corpuscular Volume 85.5 fL (80.0-100.0); Nucleated Red Blood Cells % 0.0 %
[2025-06-10 07:50] LABS: Anion Gap 11 (5-15); Calcium 9.1 mg/dL (8.7-10.4); Carbon Dioxide 24 mmol/L (20-31); Chloride 105 mmol/L (98-107); Potassium 4.2 mmol/L (3.5-5.1); Sodium 140 mmol/L (136-145)
[2025-06-10 07:56] LABS: BUN/Creatinine Ratio 11.1 (10.0-20.0); Glucose 99 mg/dL (74-106)
[2025-06-10 08:00] LABS: Blood Urea Nitrogen 6 mg/dL (9-23)
[2025-06-10 09:30] VITALS: BP 119/78; PULSE 101; RESP 18; TEMP 98.4; O2SAT 95
[2025-06-10 12:45] VITALS: BP 103/73; PULSE 107; RESP 18; TEMP 97.8; O2SAT 96
[2025-06-10] MEDS ORDERED: AUG875T PO (14:54)
[2025-06-10 17:11] VITALS: BP 105/72; PULSE 113; RESP 16; TEMP 97.1; O2SAT 92
[2025-06-10 17:32] VITALS: BP 105/72; PULSE 113; RESP 16; TEMP 97.1; O2SAT 92
--- NOTE | 2025-06-10 20:22 | DVHDSRES ---
Discharge Summary Date of Admission Resident Creating Document: BETHANY QUIROZ RESIDENT Jun 05, 2025 at 20:54 Date of Discharge: Jun 10, 2025 Admitting Diagnosis Sepsis, Facial Abscess/Cellulitis Labs/Diagnostic Data: Laboratory Results Test 06/10/25 05:03 06/06/25 12:10 06/06/25 09:03 06/05/25 22:42 White Blood Count 10.2 10^3/uL (4.4-10.8) Red Blood Count 3.58 10^6/uL (4.0-5.20) Hemoglobin 10.2 g/dL (12.2-16.2) Hematocrit 30.6 % (36.0-46.0) Mean Corpuscular Volume 85.5 fL (80.0-100.0) Mean Corpuscular Hemoglobin 28.5 pg (28.0-32.0) Mean Corpuscular Hemoglobin Concent 33.3 g/dL (32.0-36.0) Red Cell Distribution Width 16.2 % (11.8-14.3) Platelet Count 415 10^3/uL (140-450) Mean Platelet Volume 8.3 fL (6.9-10.8) Neutrophils (%) (Auto) 74.9 % (37.0-80.0) Lymphocytes (%) (Auto) 13.4 % (10.0-50.0) Monocytes (%) (Auto) 8.4 % (0.0-12.0) Eosinophils (%) (Auto) 2.6 % (0.0-7.0) Basophils (%) (Auto) 0.7 % (0.0-2.0) Neutrophils # (Auto) 7.6 10 ^3/uL (1.6-8.6) Lymphocytes # (Auto) 1.4 10 ^3/uL (0.4-5.4) Monocytes # (Auto) 0.9 10 ^3/uL (0-1.3) Eosinophils # (Auto) 0.3 10 ^3/uL (0-0.8) Basophils # (Auto) 0.1 10 ^3/uL (0-0.2) Nucleated Red Blood Cells 0.0 % Sodium Level 140 mmol/L (136-145) Potassium Level 4.2 mmol/L (3.5-5.1) Chloride Level 105 mmol/L (98-107) Carbon Dioxide Level 24 mmol/L (20-31) Anion Gap 11 (5-15) Blood Urea Nitrogen 6 mg/dL (9-23) Creatinine 0.54 mg/dL (0.550-1.02) Glomerular Filtration Rate Calc 115 mL/min (>90) BUN/Creatinine Ratio 11.1 (10.0-20.0) Serum Glucose 99 mg/dL (74-106) Calcium Level 9.1 mg/dL (8.7-10.4) Hemoglobin A1c 5.6 % A1C (<5.7) Iron Level 14 ug/dL (50-170) Total Iron Binding Capacity 255 ug/dL (250-425) Percent Iron Saturation 5.5 % (15-50) Vitamin B12 Level 367 pg/mL (211-911) Vitamin D 25-Hydroxy 43.1 ng/mL (30.0-100) Urine Color Light-yellow (Yellow) Urine Clarity Clear (Clear) Urine pH 6.0 (5.0-9.0) Urine Specific [place] 1.012 (1.001-1.035) Urine Protein Negative (Negative) Urine Ketones Negative (Negative) Urine Blood Negative /uL (Negative) Urine Nitrite Negative (Negative) Urine Bilirubin Negative (Negative) Urine Urobilinogen Normal mg/dL (Negative) Urine Leukocyte Esterase Negative /uL (Negative) Urine RBC 1 /hpf (0 - 4) Urine Microscopic WBC 2 /HPF (0-5) Urine Squamous Epithelial Cells Few /hpf (<5) Urine Bacteria Few /hpf (None Seen) Urine Glucose Normal mg/dL (Normal) Urine Opiates Screen Pos (NEGATIVE) Urine Fentanyl Screen Neg (NEGATIVE) Urine Barbiturates Screen Neg (NEGATIVE) Urine Phencyclidine Screen Neg (NEGATIVE) Urine Amphetamines Screen Neg (NEGATIVE) Urine Benzodiazepines Screen Neg (NEGATIVE) Urine Cocaine Screen Neg (NEGATIVE) Urine Cannabinoids Screen Neg (NEGATIVE) Influenza Type A Antigen Negative (Negative) Influenza Type B Antigen Negative (Negative) SARS-CoV-2 Antigen (Rapid) Negative (NEGATIVE) Test 06/05/25 15:43 Erythrocyte Sedimentation Rate 74 mm/hr (0-20) Lactic Acid Level 1.4 mmol/L (0.4-2.0) Magnesium Level 1.8 mg/dL (1.6-2.6) Total Bilirubin 0.2 mg/dL (0.2-1.0) Direct Bilirubin < 0.1 mg/dL (<0.3) Aspartate Amino Transferase (AST) 24 U/L (13-40) Alanine Aminotransferase (ALT) 27 U/L (7-40) Alkaline Phosphatase 142 U/L (46-116) C-Reactive Protein High Sensitivity 7.91 mg/dL (<1.0) Total Protein 7.6 g/dL (5.7-8.2) Albumin 4.4 g/dL (3.2-4.8) Other Laboratory Tests 06/10/25 05:03 Brief Hx & Hospital Course: Holly White is a 45-year-old female patient, with past medical history of multiple myeloma, psoriasis arthritis and fibromyalgia, The patient came to [facility] ED with complaint of redness and swelling of the left cheek. The patient reports having a non-healing lump on the left side of her face/cheek for the past 3 months. The pain was described as burning, rated 8/10 in intensity, associated with blurred vision. She states that she has visited this ED twice previously for the same complaint. At that time, the ED doctors said it looked like a spider bite, and she was prescribed antibiotics, which provided only short-term improvement before the symptoms worsened again. The patient denies fever, chills, shortness of breath, chest pain, abdominal pain, nausea, vomiting, headache, or other complaints. On evaluation in the ED, patient is afebrile, vitals are stable. Initial labs show normocytic anemia, other labs within normal limits. CT maxillofacial revealed- Complex collection in the left facial region measuring 2.7 x 2.1 x 2.5 cm, likely representing abscess/ phlegmon and communicates with the skin surface. Complete opacification of the left maxillary sinus with some enhancement which may represent the etiology for the left facial cellulitis. Correlate clinically. No definitive osseous erosion seen. If there is concern for osteomyelitis MRI of the facial region with and without contrast can be obtained. The patient was started on IV antibiotics and IV fluids. Patient is admitted for further evaluation and management. Patient was seen by surgery, recommended for transferred to higher level of care for plastic surgery, but patient is pimple popped and drained all the liquids and also CT scan revealed superficial infection. Communicated with the maxillofacial surgeon from [facility] and recommended at the lesion is not involving the bones, superficial skin infection no need to be transferred. Patient was discharged with oral antibiotic Augmentin. Patient was hemodynamically stable on discharge. Patient was advised to follow up at DC clinic, follow up with the PCP and follow up with surgeon outpatient. General Appearance: Cooperative. Well developed. Well nourished. NAD HEENT: Erythema and mild swelling on the left face with a fluctuant bump. Palpable lump noted on the left cheek, better compare with admission Pulmonary/Respiratory: Chest non-tender. Clear bilateral breath sounds, no crackles, no wheezing. Cardiovascular/Chest: Regular rate and rhythm. No murmurs. No JVD. Peripheral Pulses: 2+ Radial (R). 2+ Radial (L). 2+ Pedal (R). 2+ Pedal (L) Abdominal Exam: Normal bowel sounds. Soft. normal abdomen, no visible veins, Nontender. No hepatospenomegaly. No masses Ankle Exam: Negative ankle edema Lower extremities: Negative lower extremity edema Neuro/Mental Status: A&O x4. Coherent. Thoughts/Psych: Normal thought pattern. Appropriate mood and affect. Good judgement and insight Skin: Dry, erythematus color, warm, with psoriatic rash. Left face lump with localized redness, hardness, and swelling on the left face as described above. Case discussed with Dr Romeo Consults/Reason for consult surgery due to the abscess in the face Operations or Procedures [place] [id number] Ph: [phone] DIAGNOSTIC IMAGING Diagnostic Imaging Report : [id number] Signed PATIENT: HOLLY US LEANACCT: [id number] UNIT: [id number] : 1980 LOC: [facility] ROOM / BED: [facility] / A AGE / SEX: 45 / F ADM STATUS: ADM IN SERVICE 1112 ORDERING PHYSICIAN: MANNY DENNIS RESIDENT PROCEDURE(s): FACIC - MAXILLOFACIAL WITH REASON: Facial cellulitis ORDER NUMBER(s): [id number], ACCESSION NUMBER(s): [id number] CT MAXILLOFACIAL WITH Indication: Facial cellulitis EXAM DATE: 06/07/2025 02:09 PM COMPARISON: None TECHNIQUE: CT of the maxillofacial bones with contrast. RADIATION DOSE: CTDIvol: 66.25 mGy, DLP: 1465.29 mGy*cm FINDINGS: The orbits and retrobulbar spaces unremarkable. Facial region soft tissue stranding heterogeneous lesion/collection extending to the skin surface in the 2.7 x 1.1 x 2.5 cm with surrounding stranding. The mastoids demonstrating small right mastoid effusion. Complete opacification left maxillary sinus. There is some enhancement within the left maxillary sinus contents. The patient's maxilla is edentulous but there is a periapical lucency extending into the left maxillary sinus, coronal image 29 of 102. Extensive dental disease. IMPRESSION: Complex collection in the left facial region measuring 2.7 x 2.1 x 2.5 cm, likely representing abscess/ phlegmon and communicates with the skin surface. Complete opacification of the left maxillary sinus with some enhancement which may represent the etiology for the left facial cellulitis. Correlate clinically. No definitive osseous erosion seen. If there is concern for osteomyelitis MRI of the facial region with and without contrast can be obtained. The patient's maxilla is edentulous but there is a periapical lucency extending into the left maxillary sinus, coronal image 29 of 102, which could represent synchronous odontogenic component. Small right mastoid effusion. ATED BY: CUCO TOTH MD DICTATED DATE/TIME: 06/07/251599 SIGNED BY: CUCO TOTH MD SIGNED DATE/TIME: 06/07/251599 CC: Condition at Discharge: Stable Final Diagnosis/Problems List #Sepsis likely due to acute facial cellulitis #Acute facial cellulitis/Abscess #Intractable facial pain due to acute cellulitis #Chronic Multiple myeloma #Chronic Normocytic hypochromic anemia likely due to multiple myeloma #Chronic Fibromyalgia #Choric Psoriasis #Chronic Sinus tachycardia Discharge Disposition: Home Discharge Instruct/Medications Diet: Regular Activity: No Restrictions, As Tolerated Follow Up/Referral: f/u pcp in 7 days [facility] Surgery Medications: see prescription Scheduled Acetaminophen (Tylenol 8 Hour Arthritis), 650 MG PO TID Amoxicillin & Pot Clavulanate (Augmentin Tablet), 875 MG PO BID Carvedilol (Carvedilol), 1 TAB PO BID, (Reported) Cetirizine Hcl (Kls Aller-Aislinn), 1 TAB PO DAILY, (Reported) Cholecalciferol (Vitamin D3), 1 TAB PO DAILY, (Reported) Docusate Sodium (Colace), 1 CAP PO DAILY, (Reported) Ferrous Sulfate (Iron), 325 MG PO DAILY Ferrous Sulfate (Iron (Ferrous Sulfate)), 325 MG PO DAILY, (Reported) Gabapentin (Gabapentin), 1 CAP PO TID, (Reported) Metoprolol Tartrate (Metoprolol Tartrate), 0.5 TAB PO BID Naloxegol Oxalate (Movantik), 12.5 MG PO DAILY, (Reported) Omeprazole Magnesium (Omeprazole), 20 MG PO DAILY, (Reported) Ondansetron Odt 4MG Tab (Zofran Po), 4 MG PO TID, (Reported) Scheduled PRN Hydrocodone-Acetaminophen (Hydrocodone Bitartrate/AC 5-325 mg), 1 TAB PO Q6HP PRN Miscellaneous Medications Cetirizine Hcl (Cetirizine Hcl Allergy Ch), 5 MG PO, (Reported) Cyclobenzaprine Hcl (Cyclobenzaprine Hcl), 10 MG PO, (Reported) Duloxetine HCl (Duloxetine HCl), 30 MG PO, (Reported) Gabapentin (Gabapentin), 250 MG PO, (Reported) Hydrocodone-Acetaminophen (Hydrocodone/Acetaminophen 5-325 mg), 1 TAB PO, (Reported) Naloxegol Oxalate (Movantik), 25 MG PO, (Reported) Discontinued Medications Cephalexin Monohydrate (Cephalexin), 1 CAP PO QID Clindamycin Hcl (Clindamycin Hcl), 1 CAP PO TID Discharge Statement: "Patient was advised to return to the ER or call 911 if any headaches, dizziness, shortness of breath, chest pain, abdominal pain, bleeding, fevers, or worsening of medical condition. Patient was counseled about treatment plan, medications, possible side effects, patientverbalized understanding. All questions were answered to the best of my ability. This discharge took greater then 30 minutes in planning, reviewing documentation, counseling the patient, and discussing with other team members." ASSESSMENT ASSESSMENT Assessment facial BETHANY Champion RESIDENT Jun 10, 2025 20:22 AMY JULIAN RESIDENT Jun 11, 2025 21:14
== END 2025-06-10 19:56 | disposition home or self-care (01) | DRG 720 ==
LOC: ER 13:56 → OVERFLOW 20:54 → WEST WING 06-06 15:40
PROVIDERS: ADMIT Internal Medicine; ATTEND Internal Medicine
DX: A41.9 Sepsis, unspecified organism (principal); C90.00 Multiple myeloma not having achieved remission; L03.211 Cellulitis of face; L02.01 Cutaneous abscess of face; D64.9 Anemia, unspecified; M79.7 Fibromyalgia; J32.0 Chronic maxillary sinusitis; L40.9 Psoriasis, unspecified; R00.0 Tachycardia, unspecified; F17.200 Nicotine dependence, unspecified, uncomplicated; Z20.822 Contact with and (suspected) exposure to COVID-19; Z88.6 Allergy status to analgesic agent; Z88.2 Allergy status to sulfonamides; Z79.899 Other long term (current) drug therapy
CPT/HCPCS: 36415; 70487; 71045; 80048; 80076; 80307; 81001; 82306; 82607; 83036; 83540; 83550; 83605; 83735; 85025; 85652; 86141; 87040; 87081; 87086; 87205; 87426; 87804; 93005; 96365; 96368; G0378; J2405; J2543; J3480; J3490; Q0162